=== PATIENT | female | born 1990 | race Caucasian/White ===

== ENCOUNTER 2016-10-24 01:16 | Emergency (ER) | payer BC, OTHER ==
[~2016-10-24] VITALS: Ht 154.9 cm; Wt 92.1 kg
[~2016-10-24 01:16] MED LIST: DOXY100T2 PO; IBUP-15 PO; LEVO500T2 PO
[2016-10-24] MEDS ORDERED: LIDOCAINE 1% INJ 20 ML (XYLOCAINE) VIAL INJ ONE (02:00)
[2016-10-24] MEDS ORDERED: CEFP500T4 PO (02:00)
[2016-10-24] MEDS ORDERED: BENZ-13 PO (02:00)
[2016-10-24] MEDS ORDERED: cefTRIAXone 1 GM (ROCEPHIN) VIAL IM ONE (02:00)
--- NOTE | 2016-10-24 02:00 | ED Cough/URI ---
General Chief Complaint: Cough/Cold/Flu Symptoms Stated Complaint: COLD,COUGHING,SNEEZING,RUNNY NOSE Nursing Triage Note: Reports coughing and sneezing for 2 day. Pt is non-immunized against influenza. 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 + SICK CONTACTS WITH SAME Allergies and Home Medications Allergies Coded Allergies: Penicillins (Verified Allergy, Intermediate, HIVES, 06/04/15) Home Medications Benzonatate 100 Mg Capsule #30 1-2 TAB PO TID Prescribed by: MANNIE VALDOVINOS on 10/24/160 Cefprozil 500 Mg Tablet #20 500 MG PO BID Prescribed by: MANNIE VALDOVINOS on 10/24/16 0200 Constitutional: no symptoms reported EENTM: nose congestion see HPINo throat pain Respiratory: see HPI coughNo short of breath Cardiovascular: no symptoms reported Gastrointestinal: no symptoms reported Genitourinary: no symptoms reported LMP: Oct 10, 2016 Musculoskeletal: no symptoms reported Skin: no symptoms reported Psychiatric/Neurological: No Symptoms Reported Hematologic/Lymphatic: No Symptoms Reported Immunological/Allergic: no symptoms reported Past Vzuhjsk-Bvwkbn-Zxvsja Hx Patient Social History Alcohol Use: Rarely Uses Recreational Drug Use: No Smoking Status: Current Everyday Smoker (1/2 PPD) Type Used: Cigarettes 2nd Hand Smoke Exposure: No Recent Foreign Travel: No Contact w/Someone Who Travel: No Recent Infectious Disease Expo: No Recent Hopitalizations: No Immunizations Up To Date Tetanus Booster (TDap): Less than 5yrs Seasonal Allergies Seasonal Allergies: No Surgeries HX Surgeries: No Respiratory Hx Respiratory Disorders: No Cardiovascular Hx Cardiac Disorders: No Neurological Hx Neurological Disorders: No Reproductive System Hx Reproductive Disorders: No Sexually Transmitted Disease: No HIV/AIDS: No Female 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 Genitourinary Hx Genitourinary Disorders: No Gastrointestinal Hx Gastrointestinal Disorders: No Musculoskeletal Hx Musculoskeletal Disorders: No Endocrine Hx Endocrine Disorders: No HEENT HX ENT Disorders: No Cancer Hx Cancer: No Psychosocial Hx Psychiatric Problems: No Integumentary HX Skin/Integumentary Disorder: No Blood Transfusions Hx Blood Disorders: No Adverse Reaction to a Blood Tr: No Physical Exam Vital Signs Vital Sign - Last 12Hours 10/24/16 01:27 Temp 98.6 Pulse 96 Resp 20 B/P 142/96 O2 Delivery Room Air Capillary Refill : Less Than 3 Seconds General Appearance: WD/WN no apparent distress HEENT: PERRL/EOMI pharynx normal other (NASAL MUCOSAL EDEMA, CLEAR RHINORRHEA , MILD FRONTAL SINUS TENDERNESS. 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 no motor/sensory deficits alert normal mood/affect oriented x 3 Skin: normal color warm/dry Progress/Results/Core Measures Results/Orders Micro Results Microbiology 10/24/16 Influenza Types A,B Antigen (SADIA) - Final, Complete My Orders Orders-MANNIE VALDOVINOS DO Influenza A And B Antigens (10/24/16 01:33) Ceftriaxone Injection (Rocephin Injectio (10/24/16 02:00) Lidocaine 1% Injection (Xylocaine 1% Inj (10/24/16 02:00) Benzonatate Capsule (Tessalon Perles) (10/24/16 09:00) Medications Given in ED Current Medications Medications Dose Ordered Sig/Ghanshyam Route Start Time Stop Time Status Last Admin Dose Admin Ceftriaxone Sodium 1,000 mg ONCE ONCE IM 10/24/16 02:00 10/24/16 02:01 DC 10/24/16 02:05 1,000 MG Lidocaine HCl 2.1 ml ONCE ONCE INJ 10/24/16 02:00 10/24/16 02:01 DC 10/24/16 02:05 2.1 ML Vital Signs/I&O Vital Sign - Last 12Hours 10/24/16 01:27 Temp 98.6 Pulse 96 Resp 20 B/P 142/96 O2 Delivery Room Air Blood Pressure Mean: 111 Departure Impression Impression: Primary Impression: Upper respiratory infection Additional Impression: Bronchitis Disposition: 01 HOME, SELF-CARE Condition: Stable Departure-Patient Inst. Referrals: NO,LOCAL PHYSICIAN (PCP/Family) Primary Care Physician Patient Instructions: Acute Bronchitis, Adult (DC), Bacterial Upper Respiratory Infection, Adult (DC) Add. Discharge Instructions: NERI DM FOR COUGH TYLENOL AND MOTRIN 4 TIMES A DAY FOR PAIN OR FEVER FOLLOW UP WITH DRFrancine OF CHOICE IN 3-4 DAYS IF NO BETTER All discharge instructions reviewed with patient and/or family. Voiced understanding. 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
[2016-10-24] MEDS ORDERED: BENZONATATE 100 MG (TESSALON) CAPSULE PO ONE (02:18)
[2016-10-24 02:21] VITALS: BP 142/96
[2016-10-24] MEDS ORDERED: BENZONATATE 100 MG (TESSALON) CAPSULE PO SCH (09:00)
== END 2016-10-24 02:21 | disposition home or self-care (01) ==
LOC: EDUNIT# 01:16 → ER 01:19
DX: J40 Bronchitis, not specified as acute or chronic (principal); J06.9 Acute upper respiratory infection, unspecified
CPT/HCPCS: 87804; 96372; 99282

== ENCOUNTER 2018-11-08 22:20 | Emergency (ER) | payer BC, MEDICAID ==
[~2018-11-08] VITALS: Ht 167.6 cm; Wt 74.8 kg
[~2018-11-08 22:20] MED LIST changes: +BENZ100C18 PO; +CEFP500T4 PO; -IBUP-15 PO; +IBUP-16 PO
[2018-11-08 23:48] VITALS: BP_SYST 113; BP_SYST 125; BP_DIAS 57; BP_DIAS 67
[2018-11-08] MEDS ORDERED: LACTATED RINGERS 1,000 ML IV ONE ×2 (23:55→23:56)
[2018-11-09 00:04] LABS: BASOPHILS % (AUTO) 0 % (0-10); EOSINOPHILS # (AUTO) 0.2 10^3/uL (0.0-0.3); EOSINOPHILS % (AUTO) 1 % (0-10); HEMATOCRIT 39 % (35-52); LYMPHOCYTES # (AUTO) 2.3 X 10^3 (1.0-4.0); LYMPHOCYTES % (AUTO) 17 % (12-44); MEAN CORPUSCULAR HEMOGLOBIN 31 PG (25-34); MEAN CORPUSCULAR HGB CONC 34 G/DL (32-36); MEAN CORPUSCULAR VOLUME 91 FL (80-99); MEAN PLATELET VOLUME 10.2 FL (7.4-10.4); MONOCYTES % (AUTO) 7 % (0-12); NEUTROPHILS # (AUTO) 10.4 X 10^3 (1.8-7.8); NEUTROPHILS % (AUTO) 75 % (42-75); PLATELET COUNT 288 10^3/uL (130-400); RED CELL DISTRIBUTION WIDTH 15.5 % (10.0-14.5); WHITE BLOOD COUNT 13.9 10^3/uL (4.3-11.0)
[2018-11-09 00:04] LABS: BILIRUBIN,URINE NEGATIVE (NEGATIVE); CLARITY,URINE VERY CLOUDY; COLOR,URINE YELLOW; GLUCOSE, URINE (UA) 4+ (NEGATIVE); KETONES,URINE 1+ (NEGATIVE); LEUKOCYTE ESTERASE ,URINE 2+ (NEGATIVE); NITRITE,URINE NEGATIVE (NEGATIVE); PH,URINE 6 (5-9); PROTEIN,URINE 2+ (NEGATIVE); UROBILINOGEN,URINE NORMAL (NORMAL)
[2018-11-09 00:10] LABS: BACTERIA,URINE MODERATE /HPF; RBC,URINE 0-2 /HPF; SQUAMOUS EPITHELIAL CELL,UR 25-50 /HPF
[2018-11-09 00:20] LABS: ALANINE AMINOTRANSFERASE < 6 U/L (0-55); ALBUMIN 3.5 GM/DL (3.2-4.5); ALKALINE PHOSPHATASE 68 U/L (40-136); BILIRUBIN,TOTAL 0.1 MG/DL (0.1-1.0); BUN/CREATININE RATIO 13; CALCIUM 9.5 MG/DL (8.5-10.1); CARBON DIOXIDE 20 MMOL/L (21-32); CHLORIDE 107 MMOL/L (98-107); GFR ESTIMATED > 60; GLUCOSE 121 MG/DL (70-105); POTASSIUM 3.5 MMOL/L (3.6-5.0); SODIUM 137 MMOL/L (135-145); TOTAL PROTEIN 6.5 GM/DL (6.4-8.2)
--- NOTE | 2018-11-09 00:25 | ED Syncope ---
General Chief Complaint: Dizziness/Syncope Stated Complaint: 17 WKS PREG/DIZZY/PASSED OUT Nursing Triage Note: PT STATES 17WKS PREG. VERBALIZED WAS STANDING IN BATHROOM, FELT DIZZY FELL TO KNEES, DOESNT REMEMBER ANYTHING ELSE. PT LOSS OF CONSCIOUSNESS LESS THAN A MIN. PT STATES Source of Information: Patient, Spouse Exam Limitations: No Limitations History of Present Illness Date Seen by Provider: Nov 09, 2018 Time Seen by Provider: 00:00 Initial Comments The patient presents to the ER by private conveyance with chief complaint that she was in the bathroom with her significant other and he was rubbing her shoulders and she says she put her right arm out to the wall because she started feeling faint before she could say anything she had passed out. Her said that she landed on her knees with her head going forward striking the left parietal scalp against the wall and then falling forward rubbing her left ear against a door frame. She is not having any bleeding. She was only out for less than a minute. She's not been having any recent illness, cough colds fever chills nausea vomiting diarrhea. She does have a history of headaches and nausea for which she uses Zofran, Fioricet. She is a at 17 weeks 5 days with a EDC of April 13, 2019. She follows with an [facility] in [place], [place]. She's had a rather uneventful thus far. She takes her vitamins. She denies dysuria, diarrhea, constipation. Allergies and Home Medications Allergies Coded Allergies: Penicillins (Verified Allergy, Intermediate, HIVES, 06/04/15) Home Medications Benzonatate 100 Mg Capsule, 1-2 TAB PO TID Prescribed by: MANNIE VALDOVINOS on 10/24/16199 Cefprozil 500 Mg Tablet, 500 MG PO BID Prescribed by: MANNIE VALDOVINOS on 10/24/16199 Patient Home Medication List Home Medication List Reviewed: Yes Review of Systems Constitutional: No chills, No dizziness, No fever, No malaise EENTM: ear pain (left); No ear discharge, No hearing loss Respiratory: No cough, No phlegm, No short of breath Cardiovascular: No chest pain, No edema, No Hx of Intervention, No palpitations ; syncope Gastrointestinal: No abdominal pain, No constipation, No diarrhea, No dysphagia , No nausea, No vomiting Genitourinary: No discharge, No dysuria : Yes Musculoskeletal: No back pain, No joint pain Past Ahygrya-Iiiunt-Pknvpr Hx Patient Social History Alcohol Use: Denies Use Recreational Drug Use: No Smoking Status: Current Someday Smoker Type Used: Cigarettes 2nd Hand Smoke Exposure: No Recent Foreign Travel: No Contact w/Someone Who Travel: No Recent Infectious Disease Expo: No Recent Hopitalizations: No Immunizations Up To Date Tetanus Booster (TDap): Less than 5yrs Seasonal Allergies Seasonal Allergies: No Past Medical History Surgeries: No Respiratory: No Cardiac: No Neurological: No Reproductive Disorders: No Female 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 Sexually Transmitted Disease: No HIV/AIDS: No Gastrointestinal: No Musculoskeletal: No Endocrine: No Cancer: No Psychosocial: No Integumentary: No Blood Disorders: No Adverse Reaction/Blood Tranf: No Physical Exam Vital Signs Vital Signs - First Documented 11/08/18 23:27 Temp 98.0 Pulse 84 Resp 18 B/P (MAP) 121/69 (86) Pulse Ox 98 O2 Delivery Room Air Capillary Refill : Less Than 3 Seconds Height, Weight, BMI Height: 5'6.00" Weight: 165lbs. oz. [id number]; 33.39 BMI Method:Stated General Appearance: No Apparent Distress, WD/WN HEENT: PERRL/EOMI, TMs Normal, Normal ENT Inspection, Pharynx Normal, Moist Mucous Membranes, Other (atraumatic head) Neck: Full Range of Motion, Normal Inspection, Non Tender, Supple Cardiovascular: Regular Rate, Rhythm, No Edema, Normal Peripheral Pulses Respiratory: Chest Non Tender, Lungs Clear, Normal Breath Sounds Gastrointestinal: Normal Bowel Sounds, Non Tender, Soft, Other (gravid) Extremities: Normal Capillary Refill, Normal Inspection, No Pedal Edema Neurologic/Psychiatric: Alert, Oriented x3 Cranial Nerves: Normal Hearing, Normal Speech, PERRL Coordination/Gait: Normal Gait Motor/Sensory: No Motor Deficit, No Sensory Deficit Skin: Normal Color, Warm/Dry Progress/Results/Core Measures Results/Orders Lab Results Laboratory Tests Test 11/08/18 22:30 11/08/18 23:50 11/09/18 00:35 Range/Units Urine Color YELLOW YELLOW Urine Clarity VERY CLOUDY H CLEAR Urine pH 6 6 5-9 Urine Specific [place] 1.025 H 1.025 H 1.016-1.022 Urine Protein 2+ H 1+ H NEGATIVE Urine Glucose (UA) 4+ H 4+ H NEGATIVE Urine Ketones 1+ H 1+ H NEGATIVE Urine Nitrite NEGATIVE NEGATIVE NEGATIVE Urine Bilirubin NEGATIVE NEGATIVE NEGATIVE Urine Urobilinogen NORMAL NORMAL NORMAL MG/DL Urine Leukocyte Esterase 2+ H 1+ H NEGATIVE Urine RBC (Auto) 1+ H 1+ H NEGATIVE Urine RBC 0-2 RARE /HPF Urine WBC 5-10 H 2-5 /HPF Urine Squamous Epithelial Cells 25-50 H 2-5 /HPF Urine Crystals NONE NONE /LPF Urine Bacteria MODERATE H MODERATE H /HPF Urine Casts NONE NONE /LPF Urine Mucus NEGATIVE NEGATIVE /LPF Urine Culture Indicated YES NO White Blood Count 13.9 H 4.3-11.0 10^3/uL Red Blood Count 4.25 L 4.35-5.85 10^6/uL Hemoglobin 13.0 11.5-16.0 G/DL Hematocrit 39 35-52 % Mean Corpuscular Volume 91 80-99 FL Mean Corpuscular Hemoglobin 31 25-34 PG Mean Corpuscular Hemoglobin Concent 34 32-36 G/DL Red Cell Distribution Width 15.5 H 10.0-14.5 % Platelet Count 288 130-400 10^3/uL Mean Platelet Volume 10.2 7.4-10.4 FL Neutrophils (%) (Auto) 75 42-75 % Lymphocytes (%) (Auto) 17 12-44 % Monocytes (%) (Auto) 7 0-12 % Eosinophils (%) (Auto) 1 0-10 % Basophils (%) (Auto) 0 0-10 % Neutrophils # (Auto) 10.4 H 1.8-7.8 X 10^3 Lymphocytes # (Auto) 2.3 1.0-4.0 X 10^3 Monocytes # (Auto) 1.0 0.0-1.0 X 10^3 Eosinophils # (Auto) 0.2 0.0-0.3 10^3/uL Basophils # (Auto) 0.0 0.0-0.1 10^3/uL Sodium Level 137 135-145 MMOL/L Potassium Level 3.5 L 3.6-5.0 MMOL/L Chloride Level 107 98-107 MMOL/L Carbon Dioxide Level 20 L 21-32 MMOL/L Anion Gap 10 5-14 MMOL/L Blood Urea Nitrogen 9 7-18 MG/DL Creatinine 0.70 0.60-1.30 MG/DL Estimat Glomerular Filtration Rate > 60 BUN/Creatinine Ratio 13 Glucose Level 121 H 70-105 MG/DL Calcium Level 9.5 8.5-10.1 MG/DL Corrected Calcium 9.9 8.5-10.1 MG/DL Magnesium Level 2.0 1.8-2.4 MG/DL Total Bilirubin 0.1 0.1-1.0 MG/DL Aspartate Amino Transf (AST/SGOT) 9 5-34 U/L Alanine Aminotransferase (ALT/SGPT) < 6 0-55 U/L Alkaline Phosphatase 68 40-136 U/L Total Protein 6.5 6.4-8.2 GM/DL Albumin 3.5 3.2-4.5 GM/DL My Orders Orders - KOLE VENTURA Orthostatic Vital Signs (Adult (11/08/18 23:55) Saline Lock/Iv-Start (11/08/18 23:55) Lactated Ringers (Lr 1000 Ml Iv Solution (11/08/18 23:55) Cbc With Automated Diff (11/08/18 23:55) Comprehensive Metabolic Panel (11/08/18 23:55) Magnesium (11/08/18 23:55) Ua Culture If Indicated (11/08/18 23:55) Lactated Ringers (Lr 1000 Ml Iv Solution (11/08/18 23:56) Ekg Tracing (11/09/18 00:25) Continuous Ekg Monitoring (11/09/18 00:25) Ua Culture If Indicated (11/09/18 00:40) Medications Given in ED Current Medications Medications Dose Ordered Sig/Ghanshyam Route Start Time Stop Time Status Last Admin Dose Admin Lactated Ringer's 1,000 ml @ 0 mls/hr Q0M ONCE IV 11/08/18 23:55 11/08/18 23:59 DC 11/09/18 00:06 0 MLS/HR Vital Signs/I&O 11/08/18 11/08/18 23:27 23:48 Temp 98.0 Pulse 84 84 102 Resp 18 B/P (MAP) 121/69 (86) 113/57 (75) 125/67 (86) Pulse Ox 98 O2 Delivery Room Air Blood Pressure Mean: 86 Progress Progress Note #1: Time: 00:34 Progress Note Orthostatics were positive so we are giving her a liter of LR and check and some basic labs and urine. First urinalysis demonstrated some contaminants. Rather than treat unnecessarily we will have her repeat a urinalysis if she can while she's getting her fluids. We'll then repeat orthostatics. Nothing in the history to suggest other serious infection. She says she's been drinking plenty of fluids. She does have a history of nausea using Zofran but she denies that she has been vomiting much lately. We will obtain an EKG. We discussed the risks , benefits and alternatives to doing any imaging studies and I do not think that the risks are outweighed by the benefits at this time and the patient agrees. We have clinically cleared her cervical spine by examination. Progress Note #2: Time: 01:22 Progress Note Patient's orthostatics have improved. We will allow her to go home get some rest. Initial ECG Impression Date: Nov 09, 2018 Initial ECG Impression Time: 01:15 Initial ECG Rate: 72 Initial ECG Rhythm: Normal Sinus Initial ECG Intervals: Normal Initial ECG Impression: Normal Initial ECG Comparisson: No Previous ECG Available Comment No ST elevation or depression. No dysrhythmias. Normal sinus rhythm. Departure Impression Primary Impression: Orthostatic syncope Disposition: 01 HOME, SELF-CARE Condition: Improved Departure-Patient Inst. Decision time for Depature: 01:23 Referrals: SARBJIT ROMAN DO (PCP/Family) Primary Care Physician Patient Instructions: Syncope (Fainting) (DC) Add. Discharge Instructions: Drink plenty fluids get some rest and follow up this week with your doctor if necessary. All discharge instructions reviewed with patient and/or family. Voiced understanding. Work/School Note: Work Release Form Date Seen in the Emergency Department: Nov 09, 2018 Return to Work: Nov 11, 2018 Restrictions: No Restrictions KOLE VENTURA Nov 09, 2018 00:25
[2018-11-09 00:45] LABS: BILIRUBIN,URINE NEGATIVE (NEGATIVE); CLARITY,URINE CLEAR; COLOR,URINE YELLOW; GLUCOSE, URINE (UA) 4+ (NEGATIVE); KETONES,URINE 1+ (NEGATIVE); LEUKOCYTE ESTERASE ,URINE 1+ (NEGATIVE); NITRITE,URINE NEGATIVE (NEGATIVE); PH,URINE 6 (5-9); PROTEIN,URINE 1+ (NEGATIVE); UROBILINOGEN,URINE NORMAL (NORMAL)
[2018-11-09 00:55] LABS: BACTERIA,URINE MODERATE /HPF; RBC,URINE RARE /HPF
[2018-11-09 01:13] VITALS: BP_SYST 114; BP_SYST 126; BP_DIAS 60; BP_DIAS 72
[2018-11-09 01:34] VITALS: BP 126/72
== END 2018-11-09 01:34 | disposition home or self-care (01) ==
LOC: EDUNIT# 22:20 → ER 22:22
DX: O26.892 Other specified pregnancy related conditions, second trimester (principal); R55 Syncope and collapse; O99.332 Smoking (tobacco) complicating pregnancy, second trimester; F17.210 Nicotine dependence, cigarettes, uncomplicated; Z88.0 Allergy status to penicillin; Z3A.17 17 weeks gestation of pregnancy
CPT/HCPCS: 36415; 80053; 81000; 83735; 85025; 93005

== ENCOUNTER 2019-02-23 19:48 | Emergency (ER) | payer MEDICAID ==
[~2019-02-23] VITALS: Ht 154.9 cm; Wt 78.5 kg
[2019-02-23] MEDS ORDERED: LACTATED RINGERS 1,000 ML IV ONE (20:26)
[2019-02-23 20:36] LABS: BILIRUBIN,URINE NEGATIVE (NEGATIVE); CLARITY,URINE CLEAR; COLOR,URINE AMBER; GLUCOSE, URINE (UA) 3+ (NEGATIVE); KETONES,URINE 1+ (NEGATIVE); LEUKOCYTE ESTERASE ,URINE 3+ (NEGATIVE); NITRITE,URINE NEGATIVE (NEGATIVE); PH,URINE 6 (5-9); PROTEIN,URINE 2+ (NEGATIVE); UROBILINOGEN,URINE 1 MG/DL (NORMAL)
[2019-02-23 20:52] LABS: AMPHETAMINE SCREEN, URINE NEGATIVE (NEGATIVE); BARBITURATE SCREEN URINE NEGATIVE (NEGATIVE); BENZODIAZEPINES SCREEN URINE NEGATIVE (NEGATIVE); CANNABINOID SCREEN, URINE NEGATIVE (NEGATIVE); COCAINE SCREEN URINE NEGATIVE (NEGATIVE); METHADONE STAT NEGATIVE (NEGATIVE); METHAMPHETAMINE SCREEN URINE S NEGATIVE (NEGATIVE); OPIATE SCREEN URINE NEGATIVE (NEGATIVE); OXYCODONE STAT NEGATIVE (NEGATIVE); PROPOXYPHENE STAT NEGATIVE (NEGATIVE); TRICYCLIC ANTIDEPRESSANTS SCRE NEGATIVE (NEGATIVE)
[2019-02-23 20:54] LABS: BASOPHILS % (AUTO) 0 % (0-10); EOSINOPHILS # (AUTO) 0.1 10^3/uL (0.0-0.3); EOSINOPHILS % (AUTO) 1 % (0-10); HEMATOCRIT 37 % (35-52); HEMOGLOBIN 12.1 G/DL (11.5-16.0); LYMPHOCYTES # (AUTO) 2.2 X 10^3 (1.0-4.0); LYMPHOCYTES % (AUTO) 15 % (12-44); MEAN CORPUSCULAR HGB CONC 33 G/DL (32-36); MEAN CORPUSCULAR VOLUME 86 FL (80-99); MEAN PLATELET VOLUME 10.6 FL (7.4-10.4); MONOCYTES % (AUTO) 7 % (0-12); NEUTROPHILS % (AUTO) 77 % (42-75); PLATELET COUNT 318 10^3/uL (130-400); RED CELL DISTRIBUTION WIDTH 15.3 % (10.0-14.5); WHITE BLOOD COUNT 14.2 10^3/uL (4.3-11.0)
[2019-02-23 20:55] LABS: MEAN CORPUSCULAR HEMOGLOBIN 28 PG (25-34)
[2019-02-23 20:57] LABS: BACTERIA,URINE MODERATE /HPF; CALCIUM OXALATE CRYSTALS,UR FEW /LPF; GRANULAR CASTS,URINE 0-2 /LPF; RBC,URINE 0-2 /HPF; SQUAMOUS EPITHELIAL CELL,UR 25-50 /HPF
[2019-02-23 21:11] LABS: ALANINE AMINOTRANSFERASE 7 U/L (0-55); ALBUMIN 3.2 GM/DL (3.2-4.5); ALKALINE PHOSPHATASE 129 U/L (40-136); BILIRUBIN,TOTAL 0.2 MG/DL (0.1-1.0); BUN/CREATININE RATIO 8; CALCIUM 9.4 MG/DL (8.5-10.1); CARBON DIOXIDE 17 MMOL/L (21-32); CHLORIDE 107 MMOL/L (98-107); CREATININE SERUM 0.71 MG/DL (0.60-1.30); GFR ESTIMATED > 60; GLUCOSE 125 MG/DL (70-105); MAGNESIUM 1.8 MG/DL (1.8-2.4); POTASSIUM 3.5 MMOL/L (3.6-5.0); SODIUM 135 MMOL/L (135-145); TOTAL PROTEIN 6.1 GM/DL (6.4-8.2)
[2019-02-23 21:12] VITALS: BP_SYST 115; BP_SYST 116; BP_SYST 117; BP_DIAS 71; BP_DIAS 72
[2019-02-23] MEDS ORDERED: cefTRIAXone FOR IV USE 1,000 MG in WATER (STERILE) FOR INJECTION 10 ML IV ONE (21:30)
[2019-02-23] MEDS ORDERED: NITR-65 PO (21:44)
--- NOTE | 2019-02-23 21:44 | ED General ---
General Chief Complaint: Dizziness/Syncope Stated Complaint: PASSED OUT;33 WKS Nursing Triage Note: PT AMB TO TRIAGE WITH COMPLAINT OF PASSING OUT AT [facility]. PT STATES SHE BEGAN FEELING HOT AT [facility] AND PASSED OUT FOR ROUGHLY 30-40 SECONDS. STATES SHE IS 33 WEEKS . Nursing Sepsis Screen: No Definite Risk Allergies and Home Medications Allergies Coded Allergies: Penicillins (Verified Allergy, Intermediate, HIVES, 06/04/15) Home Medications Benzonatate 100 Mg Capsule, 1-2 TAB PO TID Prescribed by: MANNIE VALDOVINOS on 10/24/16199 Cefprozil 500 Mg Tablet, 500 MG PO BID Prescribed by: MANNIE VALDOVINOS on 10/24/16199 Past Sbergtj-Uqygxh-Dkgqsl Hx Patient Social History Alcohol Use: Denies Use Recreational Drug Use: No Smoking Status: Current Everyday Smoker Type Used: Cigarettes 2nd Hand Smoke Exposure: No Recent Foreign Travel: No Contact w/Someone Who Travel: No Recent Infectious Disease Expo: No Recent Hopitalizations: No Immunizations Up To Date Tetanus Booster (TDap): Less than 5yrs Seasonal Allergies Seasonal Allergies: No Past Medical History Surgeries: No Respiratory: No Cardiac: No Neurological: No Reproductive Disorders: No Female 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 Sexually Transmitted Disease: No HIV/AIDS: No Gastrointestinal: No Musculoskeletal: No Endocrine: No (GESTATIONAL DIABETES) Cancer: No Psychosocial: No Integumentary: No Blood Disorders: No Adverse Reaction/Blood Tranf: No Physical Exam Vital Signs Vital Signs - First Documented 02/23/19 19:59 Temp 97.3 Pulse 93 Resp 18 B/P (MAP) 127/75 (92) Pulse Ox 96 O2 Delivery Room Air Capillary Refill : Less Than 3 Seconds Height, Weight, BMI Height: 5'1.00" Weight: 173lbs. oz. 78.608356yy; 33.39 BMI Method:Stated Progress/Results/Core Measures Suspected Sepsis Recent Fever Within 48 Hours: No Infection Criteria Present: None New/Unexplained Altered Menta: No Sepsis Screen: No Definite Risk SIRS Temperature:97.3 Pulse: 95 Respiratory Rate: 18 Laboratory Tests 02/23/19 20:45: White Blood Count 14.2H Blood Pressure 117 /72 Mean: 87 Laboratory Tests 02/23/19 20:45: Creatinine 0.71, Platelet Count 318, Total Bilirubin 0.2 Results/Orders Lab Results Laboratory Tests Test 02/23/19 20:28 02/23/19 20:35 02/23/19 20:45 Range/Units Urine Color LUDA H Urine Clarity CLEAR Urine pH 6 5-9 Urine Specific [place] 1.025 H 1.016-1.022 Urine Protein 2+ H NEGATIVE Urine Glucose (UA) 3+ H NEGATIVE Urine Ketones 1+ H NEGATIVE Urine Nitrite NEGATIVE NEGATIVE Urine Bilirubin NEGATIVE NEGATIVE Urine Urobilinogen 1 NORMAL MG/DL Urine Leukocyte Esterase 3+ H NEGATIVE Urine RBC (Auto) 1+ H NEGATIVE Urine RBC 0-2 /HPF Urine WBC 10-25 H /HPF Urine Squamous Epithelial Cells 25-50 H /HPF Urine Crystals PRESENT H /LPF Urine Calcium Oxalate Crystals FEW H /LPF Urine Bacteria MODERATE H /HPF Urine Casts PRESENT /LPF Urine Granular Casts 0-2 H /LPF Urine Mucus SMALL H /LPF Urine Culture Indicated YES Urine Opiates Screen NEGATIVE NEGATIVE Urine Oxycodone Screen NEGATIVE NEGATIVE Urine Methadone Screen NEGATIVE NEGATIVE Urine Propoxyphene Screen NEGATIVE NEGATIVE Urine Barbiturates Screen NEGATIVE NEGATIVE Ur Tricyclic Antidepressants Screen NEGATIVE NEGATIVE Urine Phencyclidine Screen NEGATIVE NEGATIVE Urine Amphetamines Screen NEGATIVE NEGATIVE Urine Methamphetamines Screen NEGATIVE NEGATIVE Urine Benzodiazepines Screen NEGATIVE NEGATIVE Urine Cocaine Screen NEGATIVE NEGATIVE Urine Cannabinoids Screen NEGATIVE NEGATIVE Glucometer 143 H 70-110 MG/DL White Blood Count 14.2 H 4.3-11.0 10^3/uL Red Blood Count 4.25 L 4.35-5.85 10^6/uL Hemoglobin 12.1 11.5-16.0 G/DL Hematocrit 37 35-52 % Mean Corpuscular Volume 86 80-99 FL Mean Corpuscular Hemoglobin 28 25-34 PG Mean Corpuscular Hemoglobin Concent 33 32-36 G/DL Red Cell Distribution Width 15.3 H 10.0-14.5 % Platelet Count 318 130-400 10^3/uL Mean Platelet Volume 10.6 H 7.4-10.4 FL Neutrophils (%) (Auto) 77 H 42-75 % Lymphocytes (%) (Auto) 15 12-44 % Monocytes (%) (Auto) 7 0-12 % Eosinophils (%) (Auto) 1 0-10 % Basophils (%) (Auto) 0 0-10 % Neutrophils # (Auto) 11.0 H 1.8-7.8 X 10^3 Lymphocytes # (Auto) 2.2 1.0-4.0 X 10^3 Monocytes # (Auto) 1.0 0.0-1.0 X 10^3 Eosinophils # (Auto) 0.1 0.0-0.3 10^3/uL Basophils # (Auto) 0.0 0.0-0.1 10^3/uL Sodium Level 135 135-145 MMOL/L Potassium Level 3.5 L 3.6-5.0 MMOL/L Chloride Level 107 98-107 MMOL/L Carbon Dioxide Level 17 L 21-32 MMOL/L Anion Gap 11 5-14 MMOL/L Blood Urea Nitrogen 6 L 7-18 MG/DL Creatinine 0.71 0.60-1.30 MG/DL Estimat Glomerular Filtration Rate > 60 BUN/Creatinine Ratio 8 Glucose Level 125 H 70-105 MG/DL Calcium Level 9.4 8.5-10.1 MG/DL Corrected Calcium 10.0 8.5-10.1 MG/DL Magnesium Level 1.8 1.8-2.4 MG/DL Total Bilirubin 0.2 0.1-1.0 MG/DL Aspartate Amino Transf (AST/SGOT) 7 5-34 U/L Alanine Aminotransferase (ALT/SGPT) 7 0-55 U/L Alkaline Phosphatase 129 40-136 U/L Total Protein 6.1 L 6.4-8.2 GM/DL Albumin 3.2 3.2-4.5 GM/DL Thyroid Stimulating Hormone (TSH) 0.35 0.35-4.94 UIU/ML My Orders Orders - MANNIE VALDOVINOS DO Accucheck Stat ONCE (02/23/19 20:26) Ed Iv/Invasive Line Start (02/23/19 20:) Ekg Tracing (02/23/19 20:) Heart Tones (02/23/19 20:) Monitor-Rhythm Ecg Trace Only (02/23/19 20:) Orthostatic Vital Signs (Adult (02/23/19 20:) Cbc With Automated Diff (02/23/19:) Comprehensive Metabolic Panel (02/23/19 20:) Drug Screen Stat (Urine) (02/23/19 20:) Magnesium (02/23/19 20:26) Thyroid Stimulating Hormone (02/23/19 20:26) Ua Culture If Indicated (02/23/19 20:26) Ed Iv/Invasive Line Start (02/23/19 20:26) Lactated Ringers (Lr 1000 Ml Iv Solution (02/23/19 20:26) Urine Culture (02/23/19 20:28) Ceftriaxone For Iv Use (Rocephin For I (02/23/19 21:30) Medications Given in ED Current Medications Medications Dose Ordered Sig/Ghanshyam Route Start Time Stop Time Status Last Admin Dose Admin Ceftriaxone Sodium 1000 mg/ Sterile Water 10 ml @ 200 mls/hr ONCE ONCE IV 02/23/19 21:30 02/23/19 21:32 DC 02/23/19 21:35 200 MLS/HR Lactated Ringer's 1,000 ml @ 0 mls/hr Q0M ONCE IV 02/23/19 20:26 02/23/19 20:29 DC 02/23/19 21:35 999 MLS/HR Vital Signs/I&O 02/23/19 02/23/19 19:59 21:12 Temp 97.3 Pulse 93 81 85 95 Resp 18 B/P (MAP) 127/75 (92) 115/71 (86) 116/72 (87) 117/72 (87) Pulse Ox 96 O2 Delivery Room Air Capillary Refill : Less Than 3 Seconds Blood Pressure Mean: 87 Departure Impression Primary Impression: NEAR SYNCOPAL EPISODE Additional Impression: UTI (urinary tract infection) in in third trimester Disposition: 01 HOME, SELF-CARE Condition: Stable Departure-Patient Inst. Referrals: SARBJIT ROMAN DO (PCP/Family) Primary Care Physician Patient Instructions: Avoiding Infections in , Syncope (Fainting) (DC), Urinary Tract Infection, Adult (DC) Add. Discharge Instructions: LOTS OF CLEAR LIQUIDS--WATER, BROTH, JELLO, GATORADE TYLENOL NEEDED FOR PAIN FOLLOW UP WITH YOUR OB DR NEXT WEEK SCHEDULED, RETURN TO ER IF SYMPTOMS RETURN All discharge instructions reviewed with patient and/or family. Voiced understanding. Scripts Nitrofurantoin Monohyd/M-Cryst (Macrobid 100 mg Capsule) 100 Mg Capsule 100 MG PO BID, #20 CAP Prov: MANNIE VALDOVINOS DO 02/23/19 MANNIE VALDOVINOS DO Feb 23, 2019 21:44
[2019-02-23 22:05] VITALS: BP 115/70
== END 2019-02-23 22:07 | disposition home or self-care (01) ==
LOC: EDUNIT# 19:48 → ER 19:49
DX: O26.893 Other specified pregnancy related conditions, third trimester (principal); R55 Syncope and collapse; O23.43 Unspecified infection of urinary tract in pregnancy, third trimester; O99.333 Smoking (tobacco) complicating pregnancy, third trimester; F17.210 Nicotine dependence, cigarettes, uncomplicated; Z88.0 Allergy status to penicillin; Z3A.33 33 weeks gestation of pregnancy
CPT/HCPCS: 36415; 80053; 80306; 81000; 82962; 83735; 84443; 85025; 87088; 93005; 93041; 96374

== ENCOUNTER 2022-09-26 20:38 | Inpatient (IN) | payer MEDICAID ==
[~2022-09-26] VITALS: Ht 157.3 cm; Wt 91.2 kg
[~2022-09-26 20:38] MED LIST changes: +NITR-65 PO
[2022-09-26] MEDS ORDERED: LACTATED RINGERS 1,000 ML IV ONE (21:15)
[2022-09-26] MEDS ORDERED: VANCOMYCIN INJECTION 1,000 MG in NS (IVPB) 250 ML IV ONE (21:15)
[2022-09-26] MEDS ORDERED: MEROPENEM 500 MG in NS (IVPB) 100 ML IV ONE (21:15)
[2022-09-26 21:36] LABS: BILIRUBIN,URINE NEGATIVE (NEGATIVE); CLARITY,URINE SL CLOUDY; COLOR,URINE YELLOW; GLUCOSE, URINE (UA) TRACE (NEGATIVE); KETONES,URINE NEGATIVE (NEGATIVE); LEUKOCYTE ESTERASE ,URINE 1+ (NEGATIVE); NITRITE,URINE NEGATIVE (NEGATIVE); PROTEIN,URINE NEGATIVE (NEGATIVE)
[2022-09-26 21:53] LABS: BACTERIA,URINE LARGE /HPF; SQUAMOUS EPITHELIAL CELL,UR >50 /HPF
[2022-09-26 21:56] LABS: BASOPHILS # (AUTO) 0.1 10^3/uL (0.0-0.1); BASOPHILS % (AUTO) 0 % (0-10); EOSINOPHILS # (AUTO) 0.1 10^3/uL (0.0-0.3); EOSINOPHILS % (AUTO) 1 % (0-10); HEMATOCRIT 40 % (35-52); HEMOGLOBIN 13.3 g/dL (11.5-16.0); LYMPHOCYTES % (AUTO) 18 % (12-44); MEAN CORPUSCULAR HEMOGLOBIN 30 pg (25-34); MEAN CORPUSCULAR HGB CONC 34 g/dL (32-36); MEAN CORPUSCULAR VOLUME 89 fL (80-99); MEAN PLATELET VOLUME 10.2 fL (9.0-12.2); MONOCYTES # (AUTO) 0.4 10^3/uL (0.0-1.0); MONOCYTES % (AUTO) 4 % (0-12); NEUTROPHILS # (AUTO) 8.6 10^3/uL (1.8-7.8); NEUTROPHILS % (AUTO) 76 % (42-75); PLATELET COUNT 270 10^3/uL (130-400); WHITE BLOOD COUNT 11.3 10^3/uL (4.3-11.0)
[2022-09-26 22:01] LABS: ALBUMIN 3.6 GM/DL (3.2-4.5); POTASSIUM 3.4 MMOL/L (3.6-5.0)
--- NOTE | 2022-09-26 22:01 | ED Integumentary General ---
General Chief Complaint: Breast Complaints Stated Complaint: MASTITIS Nursing Triage Note: PT AMB TO [facility] 4 WITH C/O MASTITIS IN R BREAST. PT REC'D ABX FROM [facility] 6 DAYS AGO AND IS NOT GETTING ANY RELIEF. PT HAS BEEN TREATED FOR MASTITIS SINCE 2019 Source: patient History of Present Illness Date Seen by Provider: Sep 26, 2022 Time Seen by Provider: 21:10 Initial Comments PT ARRIVES VIA POV FROM HOME WITH MALE S.O. C/O MASTITIS TO RIGHT BREAST --SYMPTOMS FOR THE LAST 8 DAYS WENT TO [facility] AND WAS PRESCRIBED BACTRIM--HAS BEEN ON IT 6 DAYS, AND SYMPTOMS ARE GETTING WORSE. NO FEVER PT IS NOT SHE DELIVERED 05/17/22--MONO/MONO TWINS WERE DELIVERED VIA AT 30 WEEKS GESTATION AT [place]. (ONE CHILD HOSPITALIZED X 6 WEEKS, THE OTHER CHILD HOSPITALIZED X 8 WEEKS--BOTH ARE DOING VERY WELL NOW) PT HAD GESTATIONAL DIABETES DURING . BLOOD SUGARS RETURNED TO NORMAL AND PT IS NOT TAKING ANY MEDICATIONS FOR DIABETES ANY MORE SHE DEVELOPED LEFT MASTITIS DURING THE LAST MONTH OF HER , AND SHE WAS HOSPITALIZED FOR THE LAST 5 WEEKS OF HER SHE DID HAVE I&D OF THE LEFT BREAST DURING THAT TIME, AND IT HAS RESOLVED. SHE HAS NOT BREAST FED AT ANY TIME. SHE HAD MASTITIS WITH HER PRIOR IN 2019 WELL. LMP 09/07/22. SHE HAS HAD BTL. PCP: [facility] Allergies and Home Medications Allergies Coded Allergies: Penicillins (Verified Allergy, Intermediate, HIVES, 06/04/15) Patient Home Medication List Home Medication List Reviewed: Yes Benzonatate (Tessalon Perles) 100 Mg Capsule, 1-2 TAB PO TID Prescribed by: MANNIE VALDOVINOS on 10/24/16199 Cefprozil (Cefprozil) 500 Mg Tablet, 500 MG PO BID Prescribed by: MANNIE VALDOVINOS on 10/24/16199 Nitrofurantoin Monohyd/M-Cryst (Macrobid 100 mg Capsule) 100 Mg Capsule, 100 MG PO BID Prescribed by: MANNIE VALDOVINOS on 02/23/192143 Review of Systems Review of Systems Constitutional: no symptoms reported; No fever Respiratory: no symptoms reported Cardiovascular: no symptoms reported Gastrointestinal: no symptoms reported Genitourinary: no symptoms reported Musculoskeletal: no symptoms reported Skin: see HPI Psychiatric/Neurological: No Symptoms Reported Endocrine: No Symptoms Reported Hematologic/Lymphatic: No Symptoms Reported Past Meezjqn-Ureckz-Rofgkr Hx Patient Social History Tobacco Use?: Yes Tobacco type used: Cigarettes Smoking Status: Current Everyday Smoker Substance use?: No Alcohol Use?: No Pt feels they are or have been: No Immunizations Up To Date Tetanus Booster (TDap): Less than 5yrs Influenza Vaccine Up-to-Date: No; Not Current Seasonal Allergies Seasonal Allergies: No Past Medical History Surgery/Hospitalization HX: MASTITIS Surgeries: Yes Section, Tubal Ligation Respiratory: No Cardiac: No Neurological: No : No Last Menstrual Period: Sep 07, 2022 Hx : 3 (DIGGS, TWINS AND MISCARRIAGE) Hx Para: 3 (DIGGS 2018TWINS 2021) Hx Total # of Abortions (Sp): 1 Reproductive Disorders: No Female 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: Tubal 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 Sexually Transmitted Disease: No HIV/AIDS: No Genitourinary: No Gastrointestinal: No Musculoskeletal: No Endocrine: No (GESTATIONAL DIABETES) HEENT: No Cancer: No Psychosocial: No Integumentary: Yes (RECURRENT MASTITIS) Blood Disorders: No Adverse Reaction/Blood Tranf: No Family Medical History SOCIAL HISTORY: -SMOKES 1 PPD -ETOH--MODERATE USE IN PAST, NO CURRENT USE -DENIES DRUG USE Physical Exam Vital Signs Vital Signs - First Documented 09/26/22 20:53 Temp 36.6 Pulse 111 Resp 18 B/P (MAP) 127/78 (94) Capillary Refill : General Appearance: WD/WN, no apparent distress Neck: normal inspection Cardiovascular: regular rate, rhythm, no murmur Respiratory: normal breath sounds, no respiratory distress, no accessory muscle use Gastrointestinal: non tender, soft Neurologic/Psychiatric: no motor/sensory deficits, alert, normal mood/affect, oriented x 3 Skin: normal color, warm/dry, other (LEFT BREAST NORMAL IN APPEARANCE. RIGHT BREAST SIGNIFICANTLY SWOLLEN/ENGORGED, WITH DIFFUSE ERYTHEMA, WARMTH, TENDERNESS, INDURATION TO THE ENTIRE BREAST. NO POINTING OR AREAS OF FLUCTUANCE NOTED AT THIS TIME. NO DRAINAGE. NO STREAKS. NO DISCHARGE FROM NIPPLE. ) Progress/Results/Core Measures Results/Orders Lab Results Laboratory Tests Test 09/26/22 21:27 09/26/22 21:38 Range/Units Urine Color YELLOW Urine Clarity SL CLOUDY Urine pH 6.0 5-9 Urine Specific Arvilla >=1.030 1.016-1.022 Urine Protein NEGATIVE NEGATIVE Urine Glucose (UA) TRACE H NEGATIVE Urine Ketones NEGATIVE NEGATIVE Urine Nitrite NEGATIVE NEGATIVE Urine Bilirubin NEGATIVE NEGATIVE Urine Urobilinogen 1.0 < = 1.0 MG/DL Urine Leukocyte Esterase 1+ H NEGATIVE Urine RBC (Auto) NEGATIVE NEGATIVE Urine RBC NONE /HPF Urine WBC 10-25 H /HPF Urine Squamous Epithelial Cells >50 H /HPF Urine Crystals NONE /LPF Urine Bacteria LARGE H /HPF Urine Casts NONE /LPF Urine Mucus NEGATIVE /LPF Urine Culture Indicated YES White Blood Count 11.3 H 4.3-11.0 10^3/uL Red Blood Count 4.44 3.80-5.11 10^6/uL Hemoglobin 13.3 11.5-16.0 g/dL Hematocrit 40 35-52 % Mean Corpuscular Volume 89 80-99 fL Mean Corpuscular Hemoglobin 30 25-34 pg Mean Corpuscular Hemoglobin Concent 34 32-36 g/dL Red Cell Distribution Width 13.8 10.0-14.5 % Platelet Count 270 130-400 10^3/uL Mean Platelet Volume 10.2 9.0-12.2 fL Immature Granulocyte % (Auto) 1 % Neutrophils (%) (Auto) 76 H 42-75 % Lymphocytes (%) (Auto) 18 12-44 % Monocytes (%) (Auto) 4 0-12 % Eosinophils (%) (Auto) 1 0-10 % Basophils (%) (Auto) 0 0-10 % Neutrophils # (Auto) 8.6 H 1.8-7.8 10^3/uL Lymphocytes # (Auto) 2.0 1.0-4.0 10^3/uL Monocytes # (Auto) 0.4 0.0-1.0 10^3/uL Eosinophils # (Auto) 0.1 0.0-0.3 10^3/uL Basophils # (Auto) 0.1 0.0-0.1 10^3/uL Immature Granulocyte # (Auto) 0.1 0.0-0.1 10^3/uL Erythrocyte Sedimentation Rate 38 H 0-20 MM/HR Sodium Level 135 135-145 MMOL/L Potassium Level 3.4 L 3.6-5.0 MMOL/L Chloride Level 104 98-107 MMOL/L Carbon Dioxide Level 21 21-32 MMOL/L Anion Gap 10 5-14 MMOL/L Blood Urea Nitrogen 9 7-18 MG/DL Creatinine 0.89 0.60-1.30 MG/DL Estimat Glomerular Filtration Rate 88 BUN/Creatinine Ratio 10 Glucose Level 108 H 70-105 MG/DL Lactic Acid Level 1.15 0.50-2.00 MMOL/L Calcium Level 9.1 8.5-10.1 MG/DL Corrected Calcium 9.4 8.5-10.1 MG/DL Total Bilirubin 0.2 0.1-1.0 MG/DL Aspartate Amino Transf (AST/SGOT) 9 5-34 U/L Alanine Aminotransferase (ALT/SGPT) 10 0-55 U/L Alkaline Phosphatase 97 40-136 U/L C-Reactive Protein High Sensitivity 5.57 H 0.00-0.50 MG/DL Total Protein 7.1 6.4-8.2 GM/DL Albumin 3.6 3.2-4.5 GM/DL Procalcitonin 0.09 <0.10 NG/ML Serum Test, Qualitative NEGATIVE NEGATIVE Smear Scan YES My Orders Orders - MANNIE VALDOVINOS DO Ed Iv/Invasive Line Start (09/26/22 21:10) Monitor-Rhythm Ecg Trace Only (09/26/22 21:10) Cbc With Automated Diff (09/26/22 21:10) Comprehensive Metabolic Panel (09/26/22 21:10) Hs C Reactive Protein (09/26/22 21:10) Hcg,Qualitative Serum (09/26/22 21:10) Lactic Acid Analyzer (09/26/22 21:10) Procalcitonin (Pct) (09/26/22 21:10) Ua Culture If Indicated (09/26/22 21:10) Blood Culture (09/26/22 21:10) Erythrocyte Sedimentation Rate (09/26/22 21:10) Ed Iv/Invasive Line Start (09/26/22 21:10) Ed Iv/Invasive Line Start (09/26/22 21:10) Vital Signs Adult Sepsis Patie Q15M (09/26/22 21:10) O2 (09/26/22 21:10) Remove Rings In Anticipation O (09/26/22 21:10) Ed Iv/Invasive Line Start (09/26/22 21:10) Lactated Ringers (Lr 1000 Ml Iv Solution (09/26/22 21:15) Meropenem (Merrem 500 Mg) (09/26/22 21:15) Vancomycin Injection (Vancomycin Injecti (09/26/22 21:15) Urine Culture (09/26/22 21:27) Medications Given in ED Current Medications Medications Dose Ordered Sig/Ghanshyam Route Start Time Stop Time Status Last Admin Dose Admin Lactated Ringer's 1,000 ml @ 0 mls/hr Q0M ONCE IV 09/26/22 21:15 09/26/22 21:16 DC 09/26/22 22:18 1,000 MLS/HR Meropenem 500 mg/ Sodium Chloride 100 ml @ 200 mls/hr ONCE ONCE IV 09/26/22 21:15 09/26/22 21:44 DC 09/26/22 22:18 200 MLS/HR Vancomycin HCl 1000 mg/Sodium Chloride 250 ml @ 250 mls/hr ONCE ONCE IV 09/26/22 21:15 09/26/22 22:14 DC 09/27/22 00:27 250 MLS/HR Vital Signs/I&O 09/26/22 20:53 Temp 36.6 Pulse 111 Resp 18 B/P (MAP) 127/78 (94) Blood Pressure Mean: 94 Progress Progress Note : Progress Note SEPSIS PROTOCOL INITIATED GIVEN: -IV FLUIDS -ANTIBIOTICS -PAIN MEDICATION NO DETERIORATION IN PT'S CONDITION DURING ER STAY VITALS STABLE NO HYPOTENSION, NO FEVER FOCUS EXAM AND 2209 SEPSIS CRITERIA MET, BASED ON HEART RATE, AND 2 SITES OF INFECTION--MASTITIS AND UTI PT ALSO FAILED OUTPATIENT THERAPY. HEART RATE DOWN TO <100 AT TIME OF ADMIT. REVIEWED PRIOR RECORDS, ALL ARE ER VISITS Departure Communication (Admissions) 2214--SPOKE WITH DR. DECKER, HOSPITALIST FOR [facility]. ACCEPTS PT FOR ADMIT. WILL ORDER ULTRASOUND IN THE AM FOR POSSIBLE ABSCESS SITE TO I&D. Impression Primary Impression: Acute mastitis of right breast Additional Impressions: Sepsis Failure of outpatient treatment Urinary tract infection Disposition: ADMITTED INPATIENT Condition: Stable Admissions Decision to Admit Reason: Admit from ER (General) Decision to Admit/Date: Sep 26, 2022 Time/Decision to Admit Time: 22:15 Departure-Patient Inst. Referrals: [facility][1]/[facility] [place] (PCP/Family) Primary Care Physician MANNIE VALDOVINOS DO Sep 26, 2022 22:01
[2022-09-26 22:03] LABS: CALCIUM 9.1 MG/DL (8.5-10.1)
[2022-09-26 22:04] LABS: TOTAL PROTEIN 7.1 GM/DL (6.4-8.2)
[2022-09-26 22:05] LABS: BILIRUBIN,TOTAL 0.2 MG/DL (0.1-1.0)
[2022-09-26 22:07] LABS: CREATININE SERUM 0.89 MG/DL (0.60-1.30)
[2022-09-26 22:10] LABS: SMEAR SCAN COMMENT YES
[2022-09-26 22:24] LABS: ERYTHROCYTE SEDIMENTATION RATE 38 MM/HR (0-20)
[2022-09-26] MEDS ORDERED: fentaNYL INJ 100 MCG/2 ML AMP IVP ONE (22:30)
[2022-09-26] MEDS ORDERED: KETOROLAC 30 MG/ML VIAL IVP ONE (22:30)
[2022-09-26 23:39] VITALS: BP 105/56
[2022-09-27] MEDS ORDERED: ONDANSETRON 4 MG/2 ML (SDV) Z0FRAN IV PRN (00:15)
[2022-09-27] MEDS ORDERED: ACETAMINOPHEN 500 MG TAB (TYLENOL) PO PRN (00:15)
[2022-09-27] MEDS: LACTATED RINGERS 1,000 ML IV SCH ×2 (00:27→04:54)
[2022-09-27] MEDS ORDERED: VANCOMYCIN 1 GM/NS 250 ML IVPB IV ONE ×2 (01:30)
[2022-09-27] MEDS: fentaNYL INJ 100 MCG/2 ML AMP IV PRN ×2 (02:21→17:24)
[2022-09-27 03:50] VITALS: BP 95/55
[2022-09-27] MEDS: MEROPENEM 500 MG in NS (IVPB) 100 ML IV SCH ×4 (04:15→22:47)
[2022-09-27] MEDS: KETOROLAC 30 MG/ML VIAL IVP PRN ×3 (05:26→20:09)
[2022-09-27 05:50] LABS: BASOPHILS # (AUTO) 0.1 10^3/uL (0.0-0.1); BASOPHILS % (AUTO) 1 % (0-10); EOSINOPHILS # (AUTO) 0.1 10^3/uL (0.0-0.3); EOSINOPHILS % (AUTO) 1 % (0-10); HEMATOCRIT 38 % (35-52); HEMOGLOBIN 12.6 g/dL (11.5-16.0); LYMPHOCYTES # (AUTO) 2.1 10^3/uL (1.0-4.0); LYMPHOCYTES % (AUTO) 24 % (12-44); MEAN CORPUSCULAR HEMOGLOBIN 29 pg (25-34); MEAN CORPUSCULAR HGB CONC 33 g/dL (32-36); MEAN CORPUSCULAR VOLUME 88 fL (80-99); MEAN PLATELET VOLUME 10.1 fL (9.0-12.2); MONOCYTES # (AUTO) 0.3 10^3/uL (0.0-1.0); MONOCYTES % (AUTO) 4 % (0-12); NEUTROPHILS # (AUTO) 6.2 10^3/uL (1.8-7.8); NEUTROPHILS % (AUTO) 70 % (42-75); PLATELET COUNT 235 10^3/uL (130-400); WHITE BLOOD COUNT 8.9 10^3/uL (4.3-11.0)
[2022-09-27 06:10] LABS: ALBUMIN 2.9 GM/DL (3.2-4.5); BILIRUBIN,TOTAL 0.3 MG/DL (0.1-1.0); CREATININE SERUM 0.71 MG/DL (0.60-1.30); POTASSIUM 3.4 MMOL/L (3.6-5.0); TOTAL PROTEIN 5.7 GM/DL (6.4-8.2)
[2022-09-27] MEDS ORDERED: LACTATED RINGERS 1,000 ML IV SCH (08:15)
[2022-09-27 08:24] VITALS: BP 107/64
[2022-09-27] MEDS ORDERED: SULF-221 PO (09:34)
--- NOTE | 2022-09-27 10:01 | Diagnostic Imaging Report ---
CHEST 1 VIEW, AP/PA ONLY Indication: Dyspnea Comparison: None available. Findings: No focal airspace disease in the visualized lungs. No pleural effusion or pneumothorax. Normal cardiomediastinal silhouette. Impression: 1. No acute cardiopulmonary process by portable radiography. Dictated by: Dictated on workstation # [id number]
--- NOTE | 2022-09-27 11:11 | Diagnostic Imaging Report ---
Indication: Right breast redness and swelling as well as pain. Sonographic interrogation of the right breast at the area of pain and swelling was performed. There is a large complex fluid collection in the retroareolar right breast measuring 4.2 x 2.6 x 5.4 cm. There is internal debris. No internal vascularity is seen. There is vascularity along the margins. No other abnormalities are seen. IMPRESSION: Complex fluid collection retroareolar right breast, suspicious for breast abscess. BI-RADS Category 2 ACR BI-RADS Category 2: Benign findings. Dictated by: Dictated on workstation # [id number]
[2022-09-27] MEDS ORDERED: KCL 10 MEQ TAB (MICRO K) PO NR (11:30)
[2022-09-27 12:04] VITALS: BP 109/68
--- NOTE | 2022-09-27 13:14 | Consultation - Surgery ---
History of Present Illness History of Present Illness Patient Consulted On(billy/time) 09/27/22 13:08 Time Seen by Provider: 12:48 History of Present Illness Surgery asked to consult regarding RIGHT breast abscess. HPI per ED: PT ARRIVES VIA POV FROM HOME WITH MALE S.O. C/O MASTITIS TO RIGHT BREAST --SYMPTOMS FOR THE LAST 8 DAYS. WENT TO [facility] AND WAS PRESCRIBED BACTRIM--HAS BEEN ON IT 6 DAYS, AND SYMPTOMS ARE GETTING WORSE. NO FEVER, PT IS NOT . SHE DELIVERED 05/17/22--MONO/MONO TWINS WERE DELIVERED VIA AT 30 WEEKS GESTATION AT [place]. (ONE CHILD HOSPITALIZED X 6 WEEKS, THE OTHER CHILD HOSPITALIZED X 8 WEEKS--BOTH ARE DOING VERY WELL NOW) PT HAD GESTATIONAL DIABETES DURING . BLOOD SUGARS RETURNED TO NORMAL AND PT IS NOT TAKING ANY MEDICATIONS FOR DIABETES ANY MORE. SHE DEVELOPED LEFT MASTITIS DURING THE LAST MONTH OF HER , AND SHE WAS HOSPITALIZED FOR THE LAST 5 WEEKS OF HER SHE DID HAVE I&D OF THE LEFT BREAST DURING THAT TIME, AND IT HAS RESOLVED. SHE HAS NOT BREAST FED AT ANY [facility]. SHE HAD MASTITIS WITH HER PRIOR IN 2019 WELL. When I spoke to pt she states this initially started about 9 days ago and this is the worst episode she has ever had. She had first "mastitis" after of her son in 2018, happened 2-3 times after that and then most recently in July. States in July had I&D done at bedside; "it was the worst thing I have ever experienced, the most painful". At that time she thought the incision was 1-2 cm long and 3 cm deep; which she packed daily. She states the breast is swollen, red and has "ball" underneath the areola. Pain is rated 8.5 out of 10, constant dull ache. Associated with fever and chills at home. Allergies and Home Medications Allergies Coded Allergies: Penicillins (Verified Allergy, Intermediate, HIVES, 06/04/15) codeine (Verified Allergy, Unknown, Nausea, 09/27/22) Patient Home Medication List Home Medication List Reviewed: Yes Sulfamethoxazole/Trimethoprim (Bactrim Ds Tablet) 800 Mg-160 Mg Tablet, 1 EA PO BID, (Reported) Entered as Reported by: LONNIE RAINEY on 09/27/22 6506 Last Action: Reviewed Discontinued Medications Benzonatate (Tessalon Perles) 100 Mg Capsule, 1-2 TAB PO TID Discontinued Reason: No Longer Taking Prescribed by: MANNIE VALDOVINOS on 10/24/16199 Last Action: Discontinued Cefprozil (Cefprozil) 500 Mg Tablet, 500 MG PO BID Discontinued Reason: No Longer Taking Prescribed by: MANNIE VALDOVINOS on 10/24/16199 Last Action: Discontinued Nitrofurantoin Monohyd/M-Cryst (Macrobid 100 mg Capsule) 100 Mg Capsule, 100 MG PO BID Discontinued Reason: No Longer Taking Prescribed by: MANNIE VALDOVINOS on 02/23/192143 Last Action: Discontinued Past Grbczsj-Rfrkku-Tegjjx Hx Patient Social History Smoking Status: Current Everyday Smoker Type Used: Cigarettes 2nd Hand Smoke Exposure: No Recent Hopitalizations: No Alcohol Use?: No Have you traveled recently?: No Immunizations Up To Date Tetanus Booster (TDap): Less than 5yrs Seasonal Allergies Seasonal Allergies: No Surgeries History of Surgeries: Yes (I&D left breast) Surgeries: Section, Tubal Ligation Respiratory History of Respiratory Disorde: No Cardiovascular History of Cardiac Disorders: No Neurological History of Neurological Disord: No Reproductive System : No Hx : 3 (DIGGS, TWINS AND MISCARRIAGE) Hx Para: 3 (DIGGS 2018TWINS 2021) Hx Total # of Abortions (Spona: 1 Hx Reproductive Disorders: No Sexually Transmitted Disease: No HIV/AIDS: No Female 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 Genitourinary History of Genitourinary Disor: No Gastrointestinal History of Gastrointestinal Di: No Musculoskeletal History of Musculoskeletal Dis: No Endocrine History of Endocrine Disorders: No (GESTATIONAL DIABETES) HEENT History of HEENT Disorders: No Cancer History of Cancer: No Psychosocial History of Psychiatric Problem: No Integumentary History of Skin or Integumenta: Yes (RECURRENT MASTITIS) Blood Transfusions History of Blood Disorders: No Adverse Reaction to a Blood Tr: No Family Medical History Significant Family History: Diabetes (Parents) Review of Systems-General Constitutional: chills; No dizziness; fever EENTM: No blurred vision, No double vision, No mouth swelling, No epistaxis Respiratory: No cough, No dyspnea on exertion Cardiovascular: No chest pain, No edema, No palpitations Gastrointestinal: No abdominal pain, No nausea, No vomiting Genitourinary: No dysuria, No frequency, No hematuria Musculoskeletal: No back pain, No joint pain, No joint swelling Skin: change in color (right breast); No change in hair/nails Psychiatric/Neurological: Denies Anxiety, Denies Depressed, Denies Seizure, Denies Tingling Physical Exam-General Problems Physical Exam Vital Signs Vital Signs - First Documented 09/26/22 09/26/22 20:53 23:39 Temp 36.6 Pulse 111 Resp 18 B/P (MAP) 127/78 (94) Pulse Ox 96 O2 Delivery Room Air Capillary Refill : General Appearance: mild distress, obese Eyes: Bilateral Eye PERRL, Bilateral Eye EOMI HEENT: pharynx normal; No scleral icterus (R), No scleral icterus (L) Neck: non-tender, supple Respiratory: lungs clear, normal breath sounds, no respiratory distress, no ac cessory muscle use Cardiovascular: regular rate, rhythm, no murmur Gastrointestinal: non tender, soft, no organomegaly Back: no CVA tenderness, no vertebral tenderness Extremities: non-tender, no pedal edema, no calf tenderness Neurologic/Psychiatric: block operator II-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 The right breast is at least two times the size of left, the entire breast is erythematous and there are areas of "puffiness" on areola above nipple. This are is also slightly firm with some possible fluctuance, no dimpling and no nipple discharge) Lymphatic: no adenopathy (neck, axilla or groin) Data Review Labs Laboratory Tests 09/26/22 21:27: Urine Color YELLOW, Urine Clarity SL CLOUDY, Urine pH 6.0, Urine Specific R[place]y >=1.030, Urine Protein NEGATIVE, Urine Glucose (UA) TRACEH, Urine Ketones NEGATIVE, Urine Nitrite NEGATIVE, Urine Bilirubin NEGATIVE, Urine Urobilinogen 1.0, Urine Leukocyte Esterase 1+H, Urine RBC (Auto) NEGATIVE, Urine RBC NONE, Urine WBC 10-25H, Urine Squamous Epithelial Cells >50H, Urine Crystals NONE, Urine Bacteria LARGEH, Urine Casts NONE, Urine Mucus NEGATIVE, Urine Culture Indicated YES 09/26/22 21:38: White Blood Count 11.3H, Red Blood Count 4.44, Hemoglobin 13.3, Hematocrit 40, Mean Corpuscular Volume 89, Mean Corpuscular Hemoglobin 30, Mean Corpuscular Hemoglobin Concent 34, Red Cell Distribution Width 13.8, Platelet Count 270, Mean Platelet Volume 10.2, Immature Granulocyte % (Auto) 1, Neutrophils (%) (Auto) 76H, Lymphocytes (%) (Auto) 18, Monocytes (%) (Auto) 4, Eosinophils (%) (Auto) 1, Basophils (%) (Auto) 0, Neutrophils # (Auto) 8.6H, Lymphocytes # (Auto) 2.0, Monocytes # (Auto) 0.4, Eosinophils # (Auto) 0.1, Basophils # (Auto) 0.1, Immature Granulocyte # (Auto) 0.1, Erythrocyte Sedimentation Rate 38H, Sodium Level 135, Potassium Level 3.4L, Chloride Level 104, Carbon Dioxide Level 21, Anion Gap 10, Blood Urea Nitrogen 9, Creatinine 0.89, Estimat Glomerular Filtration Rate 88, BUN/Creatinine Ratio 10, Glucose Level 108H, Lactic Acid Level 1.15, Calcium Level 9.1, Corrected Calcium 9.4, Total Bilirubin 0.2, Aspartate Amino Transf (AST/SGOT) 9, Alanine Aminotransferase (ALT/SGPT) 10, Alk lorraine Phosphatase 97, C-Reactive Protein High Sensitivity 5.57H, Total Protein 7.1, Albumin 3.6, Procalcitonin 0.09, Serum Test, Qualitative NEGATIVE, Smear Scan YES 09/27/22 05:25: White Blood Count 8.9, Red Blood Count 4.32, Hemoglobin 12.6, Hematocrit 38, Mean Corpuscular Volume 88, Mean Corpuscular Hemoglobin 29, Mean Corpuscular Hemoglobin Concent 33, Red Cell Distribution Width 13.8, Platelet Count 235, Mean Platelet Volume 10.1, Immature Granulocyte % (Auto) 1, Neutrophils (%) (Auto) 70, Lymphocytes (%) (Auto) 24, Monocytes (%) (Auto) 4, Eosinophils (%) (Auto) 1, Basophils (%) (Auto) 1, Neutrophils # (Auto) 6.2, Lymphocytes # (Auto) 2.1, Monocytes # (Auto) 0.3, Eosinophils # (Auto) 0.1, Basophils # (Auto) 0.1, Immature Granulocyte # (Auto) 0.1, Sodium Level 136, Potassium Level 3.4L, Chloride Level 109H, Carbon Dioxide Level 20L, Anion Gap 7, Blood Urea Nitrogen 8, Creatinine 0.71, Estimat Glomerular Filtration Rate 116, BUN/Creatinine Ratio 11, Glucose Level 101, Calcium Level 8.0L, Corrected Calcium 8.9, Total Bilirubin 0.3, Aspartate Amino Transf (AST/SGOT) 8, Alanine Aminotransferase (ALT/SGPT) 10, Alkaline Phosphatase 77, Total Protein 5.7L, Albumin 2.9L Radiology Date of Exam:09/27/22 US BREAST COMPLETE RIGHT Indication: Right breast redness and swelling as well as pain. Sonographic interrogation of the right breast at the area of pain and swelling was performed. There is a large complex fluid collection in the retroareolar right breast measuring 4.2 x 2.6 x 5.4 cm. There is internal debris. No internal vascularity is seen. There is vascularity along the margins. No other abnormalities are seen. IMPRESSION: Complex fluid collection retroareolar right breast, suspicious for breast abscess. BI-RADS Category 2 ACR BI-RADS Category 2: Benign findings. Dictated on workstation # [id number] Dict: 09/27/22 1050 Trans: 09/27/22 1111 [facility] [id number] Interpreted by: CHARLIE BRUCE MD Assessment/Plan Assessment/Plan Assessment/Plan Right Breast Abscess Plan is NPO after midnight, IV fluids, IV ABX, pain control. I reviewed the US myself and discussed her case with attending physician. She has an abscess that will need to be drained; in order for the ABX to work. Unfortunately, she ate breakfast and therefore today is not a good day to do surgery. Additionally, she is very stable and WBC has come down to 8.9 from 11.3. I discussed the procedure with her; including risks and complications not limited to pain, bleeding, infection, scar, damage to milk ducts and even nerve damage which could include loss of sensation to the nipple or even increased sensation. All questions answered to her satisfaction. Plan for surgery in the am. JAMES DOVE DO Sep 27, 2022 13:14
--- NOTE | 2022-09-27 14:06 | History & Physical-Hospitalist ---
MARILOU FLAHERTY 09/27/22 1406: History of Present Illness HPI/Chief Complaint 32 year old female who presented to the ER 09/26 with complaints of right breast pain and swelling x 8 days. At that time, she reported having received Bactrim from [facility] for suspected mastitis 6 days prior without any improvement in symptoms. She was found to have right breast mastitis, a urinary tract infection, and sepsis per her pulse and two known sites of infection. Vancomycin, meropenem, lactated ringers, pain control with fentanyl 50 mcg IV and ketorolac were initiated, and she was transferred to [facility] that day. Today, she details a history of two previous occurrences of mastitis related to . In 2018, she had mastitis early in her that was treated with I&D. In 04/29, during the final month of her second , she was diagnosed with and hospitalized for mastitis which did not resolve with hand and pumping expression and ultimately required I&D on 07/30. She has never breast fed. Today, she rates her pain a 3-4, an improvement from admission. She denies chest pain, SOB, GI disturbances or pain otherwise. Date Seen 09/27/22 Attending Physician Center/[facility] PCP Admitting Physician: Margarita Mejia MD Attending Physician: Margarita Mejia MD Referring Physician Date of Admission Sep 26, 2022 at 22:15 Home Medications & Allergies Home Medications Reviewed patient Home Medication Reconciliation performed by pharmacy medication reconciliations gyroscopic engineering technician and/or nursing. Patients Allergies have been reviewed. Allergies Allergies Coded Allergies Penicillins (Verified Allergy, Intermediate, HIVES, 06/04/15) codeine (Verified Allergy, Unknown, Nausea, 09/27/22) Past Fudcplv-Tmzbbm-Hxwlyq Hx Patient Social History Tobacco Use?: Yes Tobacco type used: Cigarettes Smoking Status: Current Everyday Smoker Smokeless Tobacco Frequency: Never a User Use of E-Cig and/or Vaping dev: No Substance use?: No Alcohol Use?: No Pt feels they are or have been: No Immunizations Up To Date Tetanus Booster (TDap): Unknown Seasonal Allergies Seasonal Allergies: No Current Status status: No status: No Advance Directives: No Advance Directive Location: Home Communicates: Verbally Primary Language: Indonesian Preferred Spoken Language: Indonesian Is interpretation needed?: No Implanted or Applied Medical D: None Past Medical History 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 oz. [id number]; 36.85 BMI Method:Stated General Appearance: No Apparent Distress Respiratory: Lungs Clear Cardiovascular: Regular Rate, Rhythm Gastrointestinal: Normal Bowel Sounds, Non Tender Extremity: Normal Inspection Neurologic/Psychiatric: Alert, Oriented x3 Skin: Other (right breast: enlarged, diffusely erythematous, swelling above the nipple) Lymphatic: No Adenopathy Results Results/Procedures Labs Laboratory Tests 09/26/22 21:38 09/27/22 05:25 Patient resulted labs reviewed. Assessment/Plan Admission Diagnosis Mastitis of the right breast UTI Sepsis Reason for Inpatient Admission: Mastitis of the right breast Sepsis Diagnosis/Problems Diagnosis/Problems (1) Acute mastitis of right breast Onset Date: ~ 09/26/2022 Status: Acute Assessment & Plan: drainage of right breast abscess scheduled for 09/28 - retroalveolar right breast fluid collection measuring 4.2 x 2.6 x 5.4 cm suspicious for breast abscess on 09/27 US - Acetaminophen 1000 mg since 09/27 - Vancomycin since 09/26 - Meropenem since 09/26 - Fentanyl 50 mcg since 09/26 - Ketorolac 30 mg since 09/26 (2) Sepsis Onset Date: ~ 09/26/2022 Status: Acute Assessment & Plan: antibiotics as above - SIRS criteria not met as of 09/27 (3) Urinary tract infection Onset Date: ~ 09/26/2022 Status: Acute Assessment & Plan: antibiotics as above CONSUELO DE LA PAZ DO 09/28/22 0550: History of Present Illness Source: patient Exam Limitations: clinical condition Time Seen by a Provider: 11:00 Past Pypfwmg-Wcbuft-Biyykd Hx Patient Social History Marrital Status: single Review of Systems Constitutional: see HPI Physical Exam Physical Exam General Appearance: No Apparent Distress Neurologic/Psychiatric: Alert, Oriented x3, No Motor/Sensory Deficits, Normal Mood/Affect Skin: Other (right breast: enlarged, diffusely erythematous, swelling above the nipple) Assessment/Plan Admission Diagnosis Severe mastitis with abscess Admission Status: Inpatient Order (span 2 midnights) Reason for Inpatient Admission: sepsis Supervisory-Addendum Brief Verification & Attestation Participated in pt care: history, MDM, physical Personally performed: exam, history, MDM, supervision of care Care discussed with: Medical Student Procedures: n/a Results interpretation: Verified all documentation Verification and Attestation of Medical Student E/M Service A medical student performed and documented this service in my presence. I reviewed and verified all information documented by the medical student and made modifications to such information, when appropriate. I personally performed the physical exam and medical decision making. Consuelo De La Paz, Sep 28, 2022,05:50 MARILOU FLAHERTY Sep 27, 2022 14:06 CONSUELO DE LA PAZ DO Sep 28, 2022 05:50
[2022-09-27 16:14] VITALS: BP 97/53
[2022-09-27] MEDS: VANCOMYCIN 1 GM/NS 250 ML IVPB IV SCH ×2 (17:24)
[2022-09-27 19:29] VITALS: BP 102/68
[2022-09-28] VITALS (12 sets, daily range): BP systolic 93–113; BP diastolic 48–70
[2022-09-28] MEDS: fentaNYL INJ 100 MCG/2 ML AMP IV PRN ×4 (02:06→20:38)
[2022-09-28] MEDS: MEROPENEM 500 MG in NS (IVPB) 100 ML IV SCH ×4 (04:35→22:30)
[2022-09-28] MEDS: KCL 10 MEQ TAB (MICRO K) PO SCH (04:39)
[2022-09-28 05:15] LABS: BASOPHILS # (AUTO) 0.1 10^3/uL (0.0-0.1); BASOPHILS % (AUTO) 0 % (0-10); EOSINOPHILS # (AUTO) 0.2 10^3/uL (0.0-0.3); EOSINOPHILS % (AUTO) 2 % (0-10); HEMATOCRIT 37 % (35-52); HEMOGLOBIN 11.9 g/dL (11.5-16.0); LYMPHOCYTES # (AUTO) 3.3 10^3/uL (1.0-4.0); LYMPHOCYTES % (AUTO) 29 % (12-44); MEAN CORPUSCULAR HEMOGLOBIN 29 pg (25-34); MEAN CORPUSCULAR HGB CONC 32 g/dL (32-36); MEAN CORPUSCULAR VOLUME 89 fL (80-99); MONOCYTES # (AUTO) 0.5 10^3/uL (0.0-1.0); MONOCYTES % (AUTO) 4 % (0-12); NEUTROPHILS # (AUTO) 7.2 10^3/uL (1.8-7.8); NEUTROPHILS % (AUTO) 64 % (42-75); PLATELET COUNT 246 10^3/uL (130-400); WHITE BLOOD COUNT 11.3 10^3/uL (4.3-11.0)
[2022-09-28] MEDS: VANCOMYCIN 1 GM/NS 250 ML IVPB IV SCH ×4 (05:15→17:45)
[2022-09-28 05:52] LABS: ALBUMIN 2.8 GM/DL (3.2-4.5); BILIRUBIN,TOTAL 0.2 MG/DL (0.1-1.0); CALCIUM 8.2 MG/DL (8.5-10.1); CREATININE SERUM 0.68 MG/DL (0.60-1.30); POTASSIUM 3.8 MMOL/L (3.6-5.0); TOTAL PROTEIN 5.6 GM/DL (6.4-8.2)
--- NOTE | 2022-09-28 06:53 | Progress Note - Hospitalist ---
Subjective HPI/CC On Admission Date Seen by Provider: Sep 28, 2022 Time Seen by Provider: 11:00 Subjective/Events-last exam Right breast worse I&D to be performed today by Dr Howard venegas maintained Review of Systems right breast pain Focused Exam Lactate Level 09/26/22 21:38: Lactic Acid Level 1.15 Objective Exam Vital Signs Vital Signs Date Time Temp Pulse Resp B/P (MAP) Pulse Ox O2 Delivery O2 Flow Rate FiO2 09/28/22 14:00 36.1 14 101/54 (70) 93 Room Air 09/28/22 13:35 4.00 09/28/22 11:12 60 Capillary Refill : General Appearance: No Apparent Distress, WD/WN, Chronically ill Respiratory: Lungs Clear, Normal Breath Sounds Skin: Other Results/Procedures Lab Laboratory Tests 09/28/22 05:03 Patient resulted labs reviewed. Assessment/Plan Assessment and Plan Assess & Plan/Chief Complaint (1) Acute mastitis of right breast Onset Date: ~ 09/26/2022 Status: Acute Assessment & Plan: drainage of right breast abscess scheduled for 09/28 - retroalveolar right breast fluid collection measuring 4.2 x 2.6 x 5.4 cm suspicious for breast abscess on 09/27 US - Acetaminophen 1000 mg since 09/27 - Vancomycin since 09/26 - Meropenem since 09/26 - Fentanyl 50 mcg since 09/26 - Ketorolac 30 mg since 09/26 (2) Sepsis Onset Date: ~ 09/26/2022 Status: Acute Assessment & Plan: antibiotics as above - SIRS criteria not met as of 09/27 (3) Urinary tract infection Onset Date: ~ 09/26/2022 Status: Acute Assessment & Plan: antibiotics as above FRANCO DE LA PAZ DO Sep 28, 2022 06:53
--- NOTE | 2022-09-28 09:22 | Progress Note - Surgery ---
HINA JONES 09/28/22 0922: Subjective Date Seen by a Provider: Sep 28, 2022 Time Seen by a Provider: 08:20 Subjective/Events-last exam The patient is lying in bed awake at time of evaluation. She reports her right breast pain is worse than yesterday, and she has noticed her skin redness spreading beyond the marked area laterally, towards her axilla. The patient denies any concerns, including chills, chest pain, shortness of breath, abdominal pain, or urinary symptoms. Review of Systems General: No Chills Pulmonary: No Dyspnea Cardiovascular: No: Chest Pain Gastrointestinal: No: Abdominal Pain Musculoskeletal: other (right breast pain) Focused Exam Lactate Level 09/26/22 21:38: Lactic Acid Level 1.15 Objective Exam Vital Signs Date Time Temp Pulse Resp B/P (MAP) Pulse Ox O2 Delivery O2 Flow Rate FiO2 09/28/22 07:07 36.8 73 18 100/65 (77) 96 Room Air 09/28/22 04:26 36.8 66 18 105/69 (81) 98 Room Air 09/28/22 00:05 36.5 73 18 111/70 (84) 98 Room Air 09/27/22 20:00 Room Air 09/27/22 19:29 37.4 78 20 102/68 (79) 97 Room Air 09/27/22 16:14 36.8 84 20 97/53 (68) 98 Room Air 09/27/22 12:04 37.0 68 18 109/68 (82) 99 Room Air I & O 09/28/22 07:00 Intake Total 2190 ml Output Total 300 ml Balance 1890 ml Capillary Refill : General Appearance: Mild Distress, Obese HEENT: PERRL/EOMI, Pharynx Normal Neck: Non Tender, Supple Respiratory: Lungs Clear Cardiovascular: Regular Rate, Rhythm, No Murmur Peripheral Pulses: 2+ Radial Pulses (R), 2+ Radial Pulses (L) Gastrointestinal: non tender, soft Extremity: Normal Inspection, No Pedal Edema Neurologic/Psychiatric: Alert, Oriented x3 Skin: Other (right breast: enlarged, diffusely erythematous, swelling above the nipple. erythema has spread laterally and superiorly toward the right axilla compared to yesterday. Notable swelling of the right breast along the superior aspect of the areola.) Lymphatic: No Adenopathy (challenging due to patient's body habitus) Results Lab Laboratory Tests 09/28/22 05:03: White Blood Count 11.3H, Red Blood Count 4.14, Hemoglobin 11.9, Hematocrit 37, Mean Corpuscular Volume 89, Mean Corpuscular Hemoglobin 29, Mean Corpuscular Hemoglobin Concent 32, Red Cell Distribution Width 13.8, Platelet Count 246, Mean Platelet Volume 10.0, Immature Granulocyte % (Auto) 1, Neutrophils (%) (Auto) 64, Lymphocytes (%) (Auto) 29, Monocytes (%) (Auto) 4, Eosinophils (%) (Auto) 2, Basophils (%) (Auto) 0, Neutrophils # (Auto) 7.2, Lymphocytes # (Auto) 3.3, Monocytes # (Auto) 0.5, Eosinophils # (Auto) 0.2, Basophils # (Auto) 0.1, Immature Granulocyte # (Auto) 0.1, Sodium Level 134L, Potassium Level 3.8, Chloride Level 108H, Carbon Dioxide Level 20L, Anion Gap 6, Blood Urea Nitrogen 7, Creatinine 0.68, Estimat Glomerular Filtration Rate 119, BUN/Creatinine Ratio 10, Glucose Level 110H, Calcium Level 8.2L, Corrected Calcium 9.2, Total Bili bruce 0.2, Aspartate Amino Transf (AST/SGOT) 9, Alanine Aminotransferase (ALT/SGPT) 10, Alkaline Phosphatase 72, Total Protein 5.6L, Albumin 2.8L Microbiology 09/26/22 Blood Culture - Preliminary, Resulted No growth Assessment/Plan Assessment/Plan Assessment/Plan Right Breast Abscess with surrounding erythema Leukocytosis Patient's pain, erythema, and swelling are all worse today. Plan for incision and drainage today. Continue monitoring WBC with CBC moving forward. Continue monitoring patient for signs of systemic infection. JACOB LAWRENCE DO 09/28/22 1217: Subjective Time Seen by a Provider: 09:47 Subjective/Events-last exam Pt seen and examined, states everything is worse today; more pain, spreading redness. Review of Systems General: No Chills Pulmonary: No Dyspnea Cardiovascular: No: Chest Pain Gastrointestinal: No: Abdominal Pain Musculoskeletal: other (right breast pain) Objective Exam General Appearance: Mild Distress, Obese HEENT: PERRL/EOMI Respiratory: Lungs Clear, Normal Breath Sounds, No Accessory Muscle Use, No Respiratory Distress Cardiovascular: Regular Rate, Rhythm, No Murmur Gastrointestinal: non tender, soft Extremity: Normal Inspection, No Pedal Edema Skin: Other (right breast: enlarged, diffusely erythematous, swelling above the nipple. erythema has spread laterally and superiorly toward the right axilla compared to yesterday. Notable swelling of the right breast along the superior aspect of the areola.) Assessment/Plan Assessment/Plan Assessment/Plan Right Breast Abscess with surrounding erythema Leukocytosis Patient's pain, erythema, and swelling are all worse today. Plan for incision and drainage today. Continue monitoring WBC with CBC moving forward. Continue monitoring patient for signs of systemic infection. Supervisory-Addendum Brief Verification & Attestation Participated in pt care: history, MDM, physical Personally performed: exam, history, MDM, supervision of care Care discussed with: Medical Student Procedures: n/a Verification and Attestation of Medical Student E/M Service A medical student performed and documented this service. I then reviewed and verified all information documented by the medical student and made modifications to such information, when appropriate. I personally performed a physical exam, medical decision making and then discussed any differences between the notes and made revisions as necessary to create one note. Jacob Lawrence , 09/28/22 , 12:17 HINA JONES Sep 28, 2022 09:22 JACOB LAWRENCE DO Sep 28, 2022 12:17
[2022-09-28] MEDS ORDERED: LACTATED RINGERS 1,000 ML IV PRN (11:30)
[2022-09-28] MEDS ORDERED: fentaNYL INJ 100 MCG/2 ML AMP ONE (11:56)
[2022-09-28] MEDS ORDERED: MIDAZOLAM 2 MG/2 ML (VERSED) VIAL ONE (11:56)
[2022-09-28] MEDS ORDERED: proPOfol 200 MG/20 ML (DIPRIVAN) VIAL IV ONE (12:22)
[2022-09-28] MEDS ORDERED: LIDOCAINE PF 2% 5 ML (XYLOCAINE) VIAL ONE ×2 (12:22→13:14)
[2022-09-28] MEDS ORDERED: SUCCINYLCHOLINE INJ 20 MG/1 ML 10 ML VIAL ONE (12:22)
[2022-09-28] MEDS ORDERED: ONDANSETRON 4 MG/2 ML (SDV) Z0FRAN ONE (12:23)
[2022-09-28] MEDS ORDERED: SEVOFLURANE (ULTANE) 15 ML INHAL SOLN ONE (13:14)
--- NOTE | 2022-09-28 13:14 | Progress Note-Post Operative ---
Post-Operative Progess Note Surgeon (s)/Skidder Driver (s) Surgeon JAMES DOVE DO Skidder Driver: DINO Mckeon Pre-Operative Diagnosis right breast abscess Post-Operative Diagnosis same Procedure & Operative Findings Date of Procedure 09/28/22 Procedure Performed/Findings I&D of right breast abscess with debridement and packing Anesthesia Type LMA Estimated Blood Loss Estimated blood loss (mL): appx 10ml Specimens/Packing Specimens Removed abscess culture necrotic tissue JAMES DOVE DO Sep 28, 2022 13:14
--- NOTE | 2022-09-28 13:28 | Anesthesia-General Post-Op ---
General Patient Condition Mental Status/LOC: Same as Preop Cardiovascular: Satisfactory Nausea/Vomiting: Absent Respiratory: Satisfactory Pain: Controlled Complications: Absent Post Op Complications Complications None Follow Up Care/Instructions Patient Instructions None needed. Anesthesia/Patient Condition Patient Condition Patient is doing well, no complaints, stable vital signs, no apparent adverse anesthesia problems. No complications reported per nursing. DEACON COLON CRNA Sep 28, 2022 13:28
[2022-09-28] MEDS ORDERED: fentaNYL INJ 100 MCG/2 ML AMP IVP ONE (13:30)
[2022-09-28] MEDS ORDERED: HYDROmorphone 2 MG/ML VIAL (DILAUDID) IV ONE (13:30)
[2022-09-28] MEDS ORDERED: ONDANSETRON 4 MG/2 ML (SDV) Z0FRAN IVP PRN (13:30)
--- NOTE | 2022-09-28 13:47 | OPERATIVE REPORT ---
DATE OF SERVICE: 09/28/2022 PREOPERATIVE DIAGNOSIS: Right breast abscess. POSTOPERATIVE DIAGNOSES: Right breast abscess plus necrotic tissue. PROCEDURE: Incision and drainage of right breast abscess with debridement and packing. SURGEON: Jacob Lawrence DO SYSTEMS PROJECT MANAGER: Robert Persaud MS3. ANESTHESIA: LMA. SPECIMEN: 1. Abscess culture. 2. Necrotic tissue. BLOOD LOSS: Less than 10 mL FLUIDS: Per anesthesia. POSTOPERATIVE CONDITION: Stable. INDICATIONS FOR PROCEDURE: The patient is a 32-year-old female with a right breast abscess that actually has gotten much worse since yesterday. FINDINGS: The patient had purulent fluid and some necrotic tissue in this breast abscess. DESCRIPTION OF PROCEDURE: After informed consent was obtained, the patient was brought to the operating room and placed on the table in supine position. She was sterilely prepped and draped in normal fashion. The right breast had been marked. This is where the large abscess was. Erythema had actually spread. I elected to make an incision on the areolar line. This was where there was a large, almost fluctuant bulging from about the 1 o'clock to the 10 o'clock position with a #15 blade, carried down through the skin into the subcutaneous tissue. Immediately upon making this incision, got out purulent fluid. Culture of this fluid then expressed all the fluid pushed it all out. There was some necrotic tissue, approximately 2 square cm or necrotic tissue. This was cut out with a Bovie electrocautery. Then copiously flushed the abscess pocket with 1 liter of normal saline, broke up all the loculations, controlled bleeding with the Bovie electrocautery and then elected to pack this area with 1-inch iodoform packing, used almost the whole bottle to pack it. The area was then cleaned and dried, pressure and fluff dressing placed and the patient transferred to recovery room in stable condition. Sponge and needle count correct at the end of the case. Job ID: [id number] DocumentID: [id number] Dictated Date: 09/28/2022 13:21:12 Grant Officer Date: 09/28/2022 13:45:00 Dictated By: JACOB LAWRENCE DO
[2022-09-28] MEDS: KETOROLAC 30 MG/ML VIAL IVP PRN ×2 (16:05→22:30)
[2022-09-28] MEDS ORDERED: TROUGH ORDER-PHARMACY XX ONE (17:00)
[2022-09-29 00:12] VITALS: BP 113/54
[2022-09-29] MEDS: fentaNYL INJ 100 MCG/2 ML AMP IV PRN (03:07)
[2022-09-29] MEDS: MEROPENEM 500 MG in NS (IVPB) 100 ML IV SCH ×3 (03:09→15:13)
[2022-09-29 03:59] VITALS: BP 100/52
[2022-09-29 06:04] LABS: BASOPHILS # (AUTO) 0.1 10^3/uL (0.0-0.1); BASOPHILS % (AUTO) 0 % (0-10); EOSINOPHILS % (AUTO) 0 % (0-10); HEMATOCRIT 35 % (35-52); HEMOGLOBIN 11.4 g/dL (11.5-16.0); LYMPHOCYTES # (AUTO) 2.4 10^3/uL (1.0-4.0); LYMPHOCYTES % (AUTO) 16 % (12-44); MEAN CORPUSCULAR HEMOGLOBIN 29 pg (25-34); MEAN CORPUSCULAR HGB CONC 33 g/dL (32-36); MEAN CORPUSCULAR VOLUME 88 fL (80-99); MEAN PLATELET VOLUME 10.4 fL (9.0-12.2); MONOCYTES # (AUTO) 0.7 10^3/uL (0.0-1.0); MONOCYTES % (AUTO) 5 % (0-12); NEUTROPHILS # (AUTO) 11.4 10^3/uL (1.8-7.8); NEUTROPHILS % (AUTO) 78 % (42-75); PLATELET COUNT 274 10^3/uL (130-400); WHITE BLOOD COUNT 14.6 10^3/uL (4.3-11.0)
[2022-09-29 06:30] LABS: POTASSIUM 3.8 MMOL/L (3.6-5.0)
[2022-09-29 06:31] LABS: CALCIUM 8.7 MG/DL (8.5-10.1)
[2022-09-29 06:32] LABS: TOTAL PROTEIN 5.9 GM/DL (6.4-8.2)
[2022-09-29] MEDS: VANCOMYCIN 1 GM/NS 250 ML IVPB IV SCH ×2 (06:33)
[2022-09-29 06:34] LABS: BILIRUBIN,TOTAL 0.1 MG/DL (0.1-1.0)
[2022-09-29] MEDS: KCL 10 MEQ TAB (MICRO K) PO SCH (06:34)
[2022-09-29 06:36] LABS: CREATININE SERUM 0.67 MG/DL (0.60-1.30)
[2022-09-29 07:37] VITALS: BP 112/55
--- NOTE | 2022-09-29 08:00 | Progress Note - Hospitalist ---
Subjective HPI/CC On Admission Date Seen by Provider: Sep 29, 2022 Time Seen by Provider: 11:00 Subjective/Events-last exam Much improved status Status post incision and drainage yesterday by Dr. Lawrence Labs reviewed Bowels are moving Review of Systems General: Fatigue, Malaise right breast pain Focused Exam Lactate Level 09/26/22 21:38: Lactic Acid Level 1.15 Objective Exam Vital Signs Vital Signs Date Time Temp Pulse Resp B/P (MAP) Pulse Ox O2 Delivery O2 Flow Rate FiO2 09/29/22 11:35 36.9 67 18 106/57 (73) 98 Room Air 09/28/22 13:35 4.00 Capillary Refill : General Appearance: No Apparent Distress, WD/WN, Chronically ill, Obese Respiratory: Lungs Clear, Normal Breath Sounds Cardiovascular: Regular Rate, Rhythm Neurologic/Psychiatric: Alert, Oriented x3, No Motor/Sensory Deficits, Normal Mood/Affect Results/Procedures Lab Laboratory Tests 09/29/22 04:43 Patient resulted labs reviewed. Assessment/Plan Assessment and Plan Assess & Plan/Chief Complaint (1) Acute mastitis of right breast Onset Date: ~ 09/26/2022 Status: Acute Assessment & Plan: drainage of right breast abscess 09/28 (2) Sepsis Onset Date: ~ 09/26/2022 Status: Acute Assessment & Plan: antibiotics as above - SIRS criteria not met as of 09/27 (3) Urinary tract infection Onset Date: ~ 09/26/2022 Status: Acute Assessment & Plan: antibiotics as above FRANCO DE LA PAZ DO Sep 29, 2022 08:00
[2022-09-29] MEDS: KETOROLAC 30 MG/ML VIAL IVP PRN ×2 (09:01→15:13)
[2022-09-29 11:35] VITALS: BP 106/57
[2022-09-29] MEDS ORDERED: VANCOMYCIN 1 GM/NS 250 ML IVPB IV SCH ×2 (14:00)
[2022-09-29 15:50] VITALS: BP 99/56
--- NOTE | 2022-09-29 15:50 | Progress Note - Surgery ---
Subjective Time Seen by a Provider: 13:49 Subjective/Events-last exam Pt seen and examined, states her pain is much better. Review of Systems Pulmonary: No Dyspnea, No Cough Cardiovascular: No: Chest Pain, Palpitations Gastrointestinal: No: Nausea, Vomiting, Abdominal Pain Focused Exam Lactate Level 09/26/22 21:38: Lactic Acid Level 1.15 Objective Exam Vital Signs Date Time Temp Pulse Resp B/P (MAP) Pulse Ox O2 Delivery O2 Flow Rate FiO2 09/29/22 11:35 36.9 67 18 106/57 (73) 98 Room Air 09/29/22 08:00 Room Air 09/29/22 07:37 37.0 64 18 112/55 (74) 95 Room Air 09/29/22 03:59 36.4 65 18 100/52 (68) 94 Room Air 09/29/22 03:07 36.4 09/29/22 00:12 36.4 62 18 113/54 (73) 94 Room Air 09/28/22 20:00 Room Air 09/28/22 20:00 37.0 84 18 113/54 (73) 95 Room Air 09/28/22 16:00 37.1 81 16 112/56 (74) 94 Room Air I & O 09/29/22 07:00 Intake Total 1300 ml Output Total 900 ml Balance 400 ml Capillary Refill : General Appearance: No Apparent Distress, Obese Respiratory: Lungs Clear, Normal Breath Sounds, No Accessory Muscle Use, No Respiratory Distress Cardiovascular: Regular Rate, Rhythm, No Murmur Peripheral Pulses: 2+ Radial Pulses (R), 2+ Radial Pulses (L) Skin: Other (erythema is about an inch inside initial line drawn and not as red) Results Lab Laboratory Tests 09/28/22 17:00: Vancomycin Level Trough 6.5L 09/29/22 04:43: White Blood Count 14.6H, Red Blood Count 3.94, Hemoglobin 11.4L, Hematocrit 35, Mean Corpuscular Volume 88, Mean Corpuscular Hemoglobin 29, Mean Corpuscular Hemoglobin Concent 33, Red Cell Distribution Width 13.5, Platelet Count 274, Mean Platelet Volume 10.4, Immature Granulocyte % (Auto) 1, Neutrophils (%) (Auto) 78H, Lymphocytes (%) (Auto) 16, Monocytes (%) (Auto) 5, Eosinophils (%) (Auto) 0, Basophils (%) (Auto) 0, Neutrophils # (Auto) 11.4H, Lymphocytes # (Auto) 2.4, Monocytes # (Auto) 0.7, Eosinophils # (Auto) 0.0, Basophils # (Auto) 0.1, Immature Granulocyte # (Auto) 0.1, Sodium Level 137, Potassium Level 3.8, Chloride Level 108H, Carbon Dioxide Level 20L, Anion Gap 9, Blood Urea Nitrogen 8, Creatinine 0.67, Estimat Glomerular Filtration Rate 119, BUN/Creatinine Ratio 12, Glucose Level 132H, Calcium Level 8.7, Corrected Calcium 9.5, Total Bilirubin 0.1, Aspartate Amino Transf (AST/SGOT) 7, Alanine Aminotransferase (ALT/SGPT) 10, Alkaline Phosphatase 76, Total Protein 5.9L, Albumin 3.0L Microbiology 09/27/22 MRSA Screen - Final, Complete MRSA not isolated 09/26/22 Blood Culture - Preliminary, Resulted No growth 09/26/22 Urine Culture - Final, Complete >=3 Gram Positive Isolates Assessment/Plan Assessment/Plan Assessment/Plan S/P I&D Right Breast Abscess with packing Leukocytosis Patient's pain, erythema, and swelling are all improved today. Plan to leave packing in and remove tomorrow with wound care team. Continue JAMES MAC DO Sep 29, 2022 15:50
[2022-09-29] MEDS ORDERED: HYDROcodone/APAP 5 MG/325 MG (LORTAB) TAB PO PRN (16:15)
[2022-09-29] MEDS: CLINDAMYCIN 150 MG (CLEOCIN) CAP PO SCH (17:00)
[2022-09-29 19:15] VITALS: BP 118/83
[2022-09-30 00:03] VITALS: BP 100/56
[2022-09-30] MEDS: CLINDAMYCIN 150 MG (CLEOCIN) CAP PO SCH ×3 (00:10→12:15)
[2022-09-30 04:19] VITALS: BP 108/69
[2022-09-30] MEDS: KCL 10 MEQ TAB (MICRO K) PO SCH (06:19)
[2022-09-30 06:25] LABS: BASOPHILS # (AUTO) 0.1 10^3/uL (0.0-0.1); BASOPHILS % (AUTO) 1 % (0-10); EOSINOPHILS # (AUTO) 0.2 10^3/uL (0.0-0.3); EOSINOPHILS % (AUTO) 2 % (0-10); HEMATOCRIT 35 % (35-52); HEMOGLOBIN 11.4 g/dL (11.5-16.0); LYMPHOCYTES % (AUTO) 40 % (12-44); MEAN CORPUSCULAR HEMOGLOBIN 29 pg (25-34); MEAN CORPUSCULAR HGB CONC 33 g/dL (32-36); MEAN CORPUSCULAR VOLUME 89 fL (80-99); MONOCYTES # (AUTO) 0.6 10^3/uL (0.0-1.0); MONOCYTES % (AUTO) 6 % (0-12); NEUTROPHILS % (AUTO) 50 % (42-75); PLATELET COUNT 259 10^3/uL (130-400)
[2022-09-30 06:49] LABS: ALBUMIN 2.6 GM/DL (3.2-4.5); BILIRUBIN,TOTAL 0.2 MG/DL (0.1-1.0); CALCIUM 8.1 MG/DL (8.5-10.1); CREATININE SERUM 0.67 MG/DL (0.60-1.30); TOTAL PROTEIN 5.3 GM/DL (6.4-8.2)
--- NOTE | 2022-09-30 06:57 | Progress Note - Surgery ---
HINA JONES 09/30/22 0657: Subjective Date Seen by a Provider: Sep 30, 2022 Time Seen by a Provider: 06:40 Subjective/Events-last exam The patient is lying in bed asleep at time of evaluation but is easily rousable. She reports her pain is currently a 2-3/10, improved from a 4-5 yesterday. She s tates her current pain is "pulling" in nature, and believes it feels like it is due to dried blood or packing/dressing. She states she has been eating and drinking without difficulty and has no difficulty urinating. She endorses having a BM yesterday, though none today yet. The patient denies any diarrhea, chills, SOB, chest pain, abdominal pain, or headache. Review of Systems General: No Chills HEENT: No Head Aches Pulmonary: No Dyspnea Cardiovascular: No: Chest Pain Gastrointestinal: No: Abdominal Pain, Diarrhea, Constipation Genitourinary: No Retention Musculoskeletal: other (right breast pain) Objective Exam Vital Signs Date Time Temp Pulse Resp B/P (MAP) Pulse Ox O2 Delivery O2 Flow Rate FiO2 09/30/22 04:19 37.2 87 18 108/69 (82) 97 Room Air 09/30/22 00:03 36.7 60 18 100/56 (71) 95 Room Air 09/29/22 20:00 Room Air 09/29/22 19:15 36.5 68 18 118/83 (95) 98 Room Air 09/29/22 15:50 36.8 61 22 99/56 (70) 96 Room Air 09/29/22 11:35 36.9 67 18 106/57 (73) 98 Room Air 09/29/22 08:00 Room Air 09/29/22 07:37 37.0 64 18 112/55 (74) 95 Room Air I & O 09/30/22 07:00 Intake Total 2300 ml Balance 2300 ml Capillary Refill : General Appearance: No Apparent Distress, Obese HEENT: PERRL/EOMI Neck: Non Tender, Supple Respiratory: Lungs Clear, Normal Breath Sounds, No Accessory Muscle Use, No Respiratory Distress Cardiovascular: Regular Rate, Rhythm, No Murmur Peripheral Pulses: 2+ Radial Pulses (R), 2+ Radial Pulses (L) Gastrointestinal: normal bowel sounds, non tender, soft Extremity: No Calf Tenderness, No Pedal Edema Neurologic/Psychiatric: Alert, Oriented x3 Skin: Other (erythema has receded around 1 inch within the drawn line s uperolateral to the areola, more recession in the superomedial and inferior regions; erythema appears to follow the area of the overlying dressing. there is an area of necrotic skin around 1 cm x 2 cm just superior to the incision. packing had dried and wet blood on removal, as well as some yellowish-brown discharge. wound deep to the incision was visualized and was red and non-nec rotic ) Results Lab Laboratory Tests 09/30/22 06:12: White Blood Count 10.0, Red Blood Count 3.91, Hemoglobin 11.4L, Hematocrit 35, Mean Corpuscular Volume 89, Mean Corpuscular Hemoglobin 29, Mean Corpuscular Hemoglobin Concent 33, Red Cell Distribution Width 13.9, Platelet Count 259, Mean Platelet Volume 10.0, Immature Granulocyte % (Auto) 1, Neutrophils (%) (Auto) 50, Lymphocytes (%) (Auto) 40, Monocytes (%) (Auto) 6, Eosinophils (%) (Auto) 2, Basophils (%) (Auto) 1, Neutrophils # (Auto) 5.0, Lymphocytes # (Auto) 4.0, Monocytes # (Auto) 0.6, Eosinophils # (Auto) 0.2, Basophils # (Auto) 0.1, Immature Granulocyte # (Auto) 0.1, Sodium Level 137, Potassium Level 4.0, Chloride Level 110H, Carbon Dioxide Level 22, Anion Gap 5, Blood Urea Nitrogen 10, Creatinine 0.67, Estimat Glomerular Filtration Rate 119, BUN/Creatinine Ratio 15, Glucose Level 95, Calcium Level 8.1L, Corrected Calcium 9.2, Total Bilirubin 0.2, Aspartate Amino Transf (AST/SGOT) 10, Alanine Aminotransferase (ALT/SGPT) 12, Alkaline Phosphatase 63, Total Protein 5.3L, Albumin 2.6L Microbiology 09/27/22 MRSA Screen - Final, Complete MRSA not isolated 09/26/22 Blood Culture - Preliminary, Resulted No growth 09/26/22 Urine Culture - Final, Complete >=3 Gram Positive Isolates Assessment/Plan Assessment/Plan Assessment/Plan S/P I&D Right Breast Abscess with packing POD 2 Leukocytosis - improved to 10.0 on 09/30 Patient's pain, erythema, and swelling are all improved again today. Patient switched to oral clindamycin yesterday afternoon, continue treating with this. Dressing was taken down and packing removed by Wound Care today. There is a small area of superficial skin necrosis just superior to the incision but the wound itself appears to be healing well. Abscess drainage culture returned showing no bacteria. Patient can be discharged home today with instruction to change packing daily and follow up in clinic. JACOB LAWRENCE DO 09/30/22 1234: Subjective Time Seen by a Provider: 12:18 Subjective/Events-last exam Pt seen and examined, she had packing changed by wound care and she is ready to go home. Pain well controlled. Review of Systems General: No Chills HEENT: No Head Aches Pulmonary: No Dyspnea Cardiovascular: No: Chest Pain Gastrointestinal: No: Abdominal Pain, Diarrhea, Constipation Objective Exam General Appearance: No Apparent Distress, Obese HEENT: PERRL/EOMI Respiratory: Lungs Clear, Normal Breath Sounds, No Accessory Muscle Use, No Respiratory Distress Cardiovascular: Regular Rate, Rhythm, No Murmur Skin: Other (erythema has receded around 1 inch within the drawn line superolateral to the areola, more recession in the superomedial and inferior regions; erythema appears to follow the area of the overlying dressing. there is an area of necrotic skin around 1 cm x 2 cm just superior to the incision. packing had dried and wet blood on removal, as well as some yellowish-brown discharge. wound deep to the incision was visualized and was red and non- necrotic ) Assessment/Plan Assessment/Plan Assessment/Plan S/P I&D Right Breast Abscess with packing POD 2 Leukocytosis - improved to 10.0 on 09/30 Patient's pain, erythema, and swelling are all improved again today. Patient switched to oral clindamycin yesterday afternoon, continue treating with this. Dressing was taken down and packing removed by Wound Care today. There is a small area of superficial skin necrosis just superior to the incision but the wound itself appears to be healing well. Abscess drainage culture returned showing no bacteria. Patient can be discharged home today with instruction to change packing daily and follow up in clinic. Will f/u on Microbiology from wound culture no bacteria seen, will make there is no growth. If there is will need to make sure her ABX are covering the bacteria. Otherwise ok to go home today. Supervisory-Addendum Brief Verification & Attestation Participated in pt care: history, MDM, physical Personally performed: exam, history, MDM, supervision of care Care discussed with: Medical Student Procedures: n/a Verification and Attestation of Medical Student E/M Service A medical student performed and documented this service. I then reviewed and verified all information documented by the medical student and made mod ifications to such information, when appropriate. I personally performed a physical exam, medical decision making and then discussed any differences between the notes and made revisions as necessary to create one note. Jacob Lawrence , 09/30/22 , 12:33 HINA JONES Sep 30, 2022 06:57 JACOB LAWRENCE DO Sep 30, 2022 12:34
[2022-09-30 07:32] VITALS: BP 100/66
[2022-09-30] MEDS ORDERED: HYPOCHLOROUS ACID/NaCl (VASHE) 250 ML IR PRN (09:15)
[2022-09-30] MEDS ORDERED: CLIN150C20 PO (10:29)
[2022-09-30] MEDS ORDERED: TRM50T PO (10:29)
--- NOTE | 2022-09-30 10:30 | Discharge Summary ---
Discharge Summary Hospital Course Was the Problem List Reviewed?: Yes Problems/Dx: (1) Acute mastitis of right breast Status: Acute (2) Sepsis Status: Acute (3) Urinary tract infection Status: Acute Hospital Course Date of Admission: Sep 26, 2022 at 22:15 Admission Diagnosis : [facility] Date of Discharge: 09/30/22 Discharge Diagnosis: [ ] Hospital Course: Leni Burt is a 32 year old female who presented to the ER on 09/26 with complaints of right breast pain and swelling x 8 days. At that time, she reported having received Bactrim from [facility] for suspected mastitis 6 days prior without any improvement in symptoms. She was found to have right breast mastitis, a urinary tract infection, and sepsis per her pulse and two known sites of infection. Vancomycin, meropenem, lactated ringers, pain control with fentanyl 50 mcg IV and ketorolac were started and she was transferred to [facility] that day. Urine, blood and nasal cultures were obtained on 09/26-09/27; urine cultures and blood cultures yielded no growth and nasal culture was negative for MRSA. By 09/27, her vitals had stabilized. She detailed a history of two previous occurrences of mastitis related to : in 2018, she had mastitis early in her first that was treated with I&D and in 04/29, during the final month of her second , she was diagnosed with and hospitalized for mastitis which did not resolve with hand or pumping expression and ultimately required I&D on 07/30. On 09/28, an ultrasound of the right revealed a retroalveolar fluid collection (4.2 x 2.6 x 5.4 cm) suscpicious for an abscess. On 09/28, I&D of the abcess was performed; surgery collected a sample for culture and switched antibiotics to oral clindamycin 150 mg. Leukocytosis of 14.6 was noted on the 09/29 and resolved by 09/30. Throughout the course the patient's right breast pain symptoms markedly; on 09/30 she described a mild "pulling" pain rated 1-2/10 she believed to be related to the presence of packing in the wound. On this day, packing was removed by wound care and the patient was with discharged home with oral clindamycin 150 mg. Surgical culture is pending at this time. " RIETH,MARILOU Labs and Pending Lab Test: Laboratory Tests 09/30/22 06:12: White Blood Count 10.0, Red Blood Count 3.91, Hemoglobin 11.4L, Hematocrit 35, Mean Corpuscular Volume 89, Mean Corpuscular Hemoglobin 29, Mean Corpuscular Hemoglobin Concent 33, Red Cell Distribution Width 13.9, Platelet Count 259, Mean Platelet Volume 10.0, Immature Granulocyte % (Auto) 1, Neutrophils (%) (Auto) 50, Lymphocytes (%) (Auto) 40, Monocytes (%) (Auto) 6, Eosinophils (%) (Auto) 2, Basophils (%) (Auto) 1, Neutrophils # (Auto) 5.0, Lymphocytes # (Auto) 4.0, Monocytes # (Auto) 0.6, Eosinophils # (Auto) 0.2, Basophils # (Auto) 0.1, Immature Granulocyte # (Auto) 0.1, Sodium Level 137, Potassium Level 4.0, Chloride Level 110H, Carbon Dioxide Level 22, Anion Gap 5, Blood Urea Nitrogen 10, Creatinine 0.67, Estimat Glomerular Filtration Rate 119, BUN/Creatinine Ratio 15, Glucose Level 95, Calcium Level 8.1L, Corrected Calcium 9.2, Total Bilirubin 0.2, Aspartate Amino Transf (AST/SGOT) 10, Alanine Aminotransferase (ALT/SGPT) 12, Alkaline Phosphatase 63, Total Protein 5.3L, Albumin 2.6L Microbiology 09/28/22 Gram Stain - Final, Resulted 09/28/22 Anaerobic Culture, Resulted Pending 09/28/22 Surgical Culture, Resulted Pending 09/27/22 MRSA Screen - Final, Complete MRSA not isolated 09/26/22 Blood Culture - Preliminary, Resulted No growth 09/26/22 Urine Culture - Final, Complete >=3 Gram Positive Isolates Home Meds Active Clindamycin HCl 150 Mg Capsule 300 Mg PO TID Reported Bactrim Ds Tablet (Sulfamethoxazole/Trimethoprim) 800 Mg-160 Mg Tablet 1 Ea PO BID FILLED 09-20-2022 #21/03 DAY SUPPLY Assessment/Pt Instructions PCP 1 week Discharge Planning: <30 minutes discharge planning Discharge Instructions Discharge Diet: No Restrictions Discharge Physical Examination Vital Signs Vital Signs Date Time Temp Pulse Resp B/P (MAP) Pulse Ox O2 Delivery O2 Flow Rate FiO2 09/30/22 08:00 Room Air 09/30/22 07:32 36.7 51 18 100/66 (77) 98 09/28/22 13:35 4.00 General Appearance: No Apparent Distress, WD/WN, Chronically ill Allergies: Coded Allergies: Penicillins (Verified Allergy, Intermediate, HIVES, 06/04/15) codeine (Verified Allergy, Unknown, Nausea, 09/27/22) Discharge Summary Date of Admission Sep 26, 2022 at 22:15 Date of Discharge Discharge Date: Sep 30, 2022 Admission Diagnosis Severe mastitis with abscess Discharge Diagnosis (1) Acute mastitis of right breast Onset Date: ~ 09/26/2022 Status: Acute Assessment & Plan: drainage of right breast abscess 09/28 (2) Sepsis Onset Date: ~ 09/26/2022 Status: Acute Assessment & Plan: antibiotics as above - SIRS criteria not met as of 09/27 (3) Urinary tract infection Onset Date: ~ 09/26/2022 Status: Acute Assessment & Plan: antibiotics as above (1) Acute mastitis of right breast Onset Date: ~ 09/26/2022 Status: Acute Assessment & Plan: drainage of right breast abscess scheduled for 09/28 - retroalveolar right breast fluid collection measuring 4.2 x 2.6 x 5.4 cm suspicious for breast abscess on 09/27 US - Acetaminophen 1000 mg since 09/27 - Vancomycin since 09/26 - Meropenem since 09/26 - Fentanyl 50 mcg since 09/26 - Ketorolac 30 mg since 09/26 (2) Sepsis Onset Date: ~ 09/26/2022 Status: Acute Assessment & Plan: antibiotics as above - SIRS criteria not met as of 09/27 (3) Urinary tract infection Onset Date: ~ 09/26/2022 Status: Acute Assessment & Plan: antibiotics as above FRANCO DE LA PAZ DO Sep 30, 2022 10:30
[2022-09-30 11:21] VITALS: BP 105/65
--- NOTE | 2022-09-30 12:20 | Progress Note ---
MARILOU FLAHERTY 09/30/22 1220: Progress Note Leni Burt is a 32 year old female who presented to the ER on 09/26 with complaints of right breast pain and swelling x 8 days. At that time, she reported having received Bactrim from [facility] for suspected mastitis 6 days prior without any improvement in symptoms. She was found to have right breast mastitis, a urinary tract infection, and sepsis per her pulse and two known sites of infection. Vancomycin, meropenem, lactated ringers, pain control with fentanyl 50 mcg IV and ketorolac were started and she was transferred to [facility] that day. Urine, blood and nasal cultures were obtained on 09/26-09/27; urine cultures and blood cultures yielded no growth and nasal culture was negative for MRSA. By 09/27, her vitals had stabilized. She detailed a history of two previous occurrences of mastitis related to : in 2018, she had mastitis early in her first that was treated with I&D and in 04/29, during the final month of her second , she was diagnosed with and hospitalized for mastitis which did not resolve with hand or pumping expression and ultimately required I&D on 07/30. On 09/28, an ultrasound of the right revealed a retroalveolar fluid collection (4.2 x 2.6 x 5.4 cm) suscpicious for an abscess. On 09/28, I&D of the abcess was performed; surgery collected a sample for culture and switched antibiotics to oral clindamycin 150 mg. Leukocytosis of 14.6 was noted on the 09/29 and resolved by 09/30. Throughout the course the pa tient's right breast pain symptoms markedly; on 09/30 she described a mild "pulling" pain rated 1-2/10 she believed to be related to the presence of packing in the wound. On this day, packing was removed by wound care and the patient was with discharged home with oral clindamycin 150 mg. Surgical culture is pending at this time. " CONSUELO DE LA PAZ DO 10/01/22 0504: Supervisory-Addendum Brief Verification & Attestation Participated in pt care: history, MDM, physical Personally performed: exam, history, MDM, supervision of care Care discussed with: Medical Student Procedures: n/a Results interpretation: Verified all documentation Verification and Attestation of Medical Student E/M Service A medical student performed and documented this service in my presence. I reviewed and verified all information documented by the medical student and made modifications to such information, when appropriate. I personally performed the physical exam and medical decision making. Consuelo De La Paz, Oct 01, 2022,05:04 MARILOU FLAHERTY Sep 30, 2022 12:20 CONSUELO DE LA PAZ DO Oct 01, 2022 05:04
[2022-09-30] MEDS ORDERED: TROUGH ORDER-PHARMACY XX ONE (13:00)
[2022-09-30 13:28] VITALS: BP 105/65
== END 2022-09-30 13:29 | disposition home or self-care (01) | DRG 854 ==
LOC: EDUNIT# 20:38 → ER 20:40 → 4TH 22:15
PROVIDERS: ADMIT Family Medicine; ATTEND Internal Medicine
PROC: 0H9T0ZZ Drainage of Right Breast, Open Approach (ICD-10-PCS; principal; 2022-09-28 12:51)
DX: A41.9 Sepsis, unspecified organism (principal); N39.0 Urinary tract infection, site not specified; N61.1 Abscess of the breast and nipple; F17.210 Nicotine dependence, cigarettes, uncomplicated; Z88.5 Allergy status to narcotic agent; Z88.0 Allergy status to penicillin
CPT/HCPCS: 36415; 71045; 76641; 80053; 80202; 81000; 83605; 84145; 84703; 85025; 85652; 86141; 87040; 87070; 87075; 87081; 87088; 87205; 93041